=== PATIENT | male | born 1955 | race African-American/Black ===

== ENCOUNTER 2025-06-11 16:59 | Inpatient (IN) | payer OTHER ==
[~2025-06-11] VITALS: Ht 172.7 cm; Wt 73.5 kg
--- NOTE | 2025-06-11 17:19 | ED.PDOC ---
History of Present Illness HPI Comments This is a 60-year-old male who comes in with chief complaint of shortness a breath as well as chest pain. The patient was at home and according to the family, the patient has been complaining of shortness a breath and chest pain for the past 9 hours. At this time she states that the chest pain is an 8/10. The patient denies any history of this in the past. EN route the patient's Accu-Chek was 131. The patient is also having some diarrhea. The patient has had a stroke with left-sided weakness and does have some verbal issues. The patient also had a rhythm strip which showed PVC he has EN route. He is pointing to the left side of his chest and it does increase somewhat with palpat ion. Time Seen by MD: 17:06 Reviewed Notes: Nurses Notes, Director Of Parks And Recreation Notes, Medications, Allergies (No allergies to medications) Allergies: Coded Allergies: NO KNOWN ALLERGIES (Unverified , 06/11/25) Information Source: Patient, Emergency Med Personnel Mode of Arrival: EMS Severity: Moderate Timing: Hours Duration: Since onset Prehospital treatment: 12 Lead EKG, Accucheck (131 Accu-Chek), Bindery Leadperson, IVF Associated signs and symptoms The patient is complaining of shortness a breath with the chest pain as well as diarrhea Past Medical History PAST MEDICAL HISTORY: AFIB, CHF, CVA, HTN Surgical History: Denies all surgeries Family History Family History: No family hx of Cancer, No family hx of DM, No family hx of Heart brian, No family hx ofKidney brian Social History Smoker: Non-Smoker Alcohol: Denies ETOH Use Drugs: Denies Drug Use Lives In: Home Constitutional: denies: chills, diaphoresis, fatigue, fever, malaise, sweats, weakness, others EENTM: denies: blurred vision, double vision, ear bleeding, ear discharge, ear drainage, ear pain, ear ringing, eye pain, eye redness, hearing loss, mouth pain, mouth swelling, nasal discharge, nose bleeding, nose congestion, nose pain, photophobia, tearing, throat pain, throat swelling, voice changes, others Respiratory: reports: shortness of breath; denies: cough, hemoptysis, orthopnea, SOB at rest, SOB with excertion, stridor, wheezing, others Cardiovascular: reports: chest pain; denies: dizzy spells, diaphoresis, Dyspnea on exertion, edema, irregular heart beat, left arm pain, lightheadedness, palpitations, PND, syncope, others Gastrointestinal: reports: diarrhea; denies: abdomen distended, abdominal pain, blood streaked bowels, constipated, dysphagia, difficulty swallowing, hematemesis, melena, nausea, poor appetite, poor fluid intake, rectal bleeding, rectal pain, vomiting, others Genitourinary: denies: burning, dysuria, flank pain, frequency, hematuria, incontinence, penile discharge, penile sore, pain, testicle pain, testicle swelling, urgency, others Neurological: denies: dizziness, fainting, headache, left sided numbness, left sided weakness, numbness, paresthesia, pre-existing deficit, right sided n umbness, right sided weakness, seizure, speech problems, tingling, tremors, weakness, others Musculoskeletal: denies: back pain, gout, joint pain, joint swelling, muscle pain, muscle stiffness, neck pain, others Integumetry: denies: bruises, change in color, change in hair/nails, dryness, laceration, lesions, lumps, rash, wounds, others Allergic/Immunocompromised: denies: Difficulty Healing, Frequent Infections, Hives, Itching, others Hematologic/Lymphatic: denies: anemia, blood clots, easy bleeding, easy bruising, swollen glands, others Endocrine: denies: excessive hunger, excessive sweating, excessive thirst, excessive urination, flushing, intolerance to cold, intolerance to heat, unexplained weight gain, unexplained weight loss, others Psychiatric: denies: anxiety, bipolar disorder, depression, hopeless, panic disorder, schizophrenia, sleepless, suicidal, others Physical Exam General Appearance: Moderate Distress HEENT: Normal ENT Inspection, Pharynx Normal, TMs Normal Neck: Full Range of Motion, Non-Tender, Normal, Normal Inspection Respiratory: Chest Non-Tender, Lungs Clear, No Accessory Muscle Use, No Respiratory Distress, Normal Breath Sounds Cardiovascular: Bradycardia, No Edema, No JVD, No Murmur, No Gallop Breast Exam: Deferred Gastrointestinal: No Organomegaly, Non Tender, No Pulsatile Mass, Normal Bowel Sounds, Soft Genitalia: Deferred Pelvic: Deferred Rectal: Deferred Extremities: No calf tenderness, Normal capillary refill, No pedal edema Musculoskeletal : Apperance: Normal Neurologic: Alert, daily sales audit clerk II-XII nml as Tested, Motor Weakness (Left-sided weakness from a previous CVA), Normal Affect, Normal Mood, No Sensory Deficits Cerebellar Function: Normal Reflexes: Normal Skin: Dry, Normal Color, Warm Lymphatic: No Adenopathy Was a procedure done? Was a procedure done?: No EKG EKG : Pulse Rate (adult): 61 Cardiac Rhythm: Afib Hypertrophy: LVH ST: Nonsp Differential Dx Considerations may include: Generalized weakness, CVA, COPD, ACS, SD X-Ray, Labs, Meds, VS Vital Signs Date Time Temp Pulse Resp B/P (MAP) Pulse Ox O2 Delivery O2 Flow Rate FiO2 06/11/25 18:57 135/87 06/11/25 18:52 127/91 06/11/25 18:31 97 Nasal Cannula* 2 28 06/11/25 18:28 36 06/11/25 18:28 97.5 41 14 139/89 (106) 97 97.5 06/11/25 18:28 41 14 97 Nasal Cannula* 2 28 06/11/25 18:25 34 06/11/25 18:24 46 06/11/25 17:25 61 06/11/25 17:05 97.9 68 18 164/62 99 97.9 06/11/25 17:02 61 Lab Test 06/11/25 19:58 06/11/25 18:21 06/11/25 17:27 Range/Units Urine Color Light-yellow Yellow Urine Clarity Clear Clear Urine pH 5.5 5.0-9.0 Urine Specific [place] 1.009 1.001-1.035 Urine Protein Trace H Negative Urine Ketones Negative Negative Urine Blood Negative Negative /uL Urine Nitrite Negative Negative Urine Bilirubin Negative Negative Urine Urobilinogen Normal Negative mg/dL Urine Leukocyte Esterase Negative Negative /uL Urine RBC 1 0 - 3 /hpf Urine Microscopic WBC 1 0-3 /HPF Urine Squamous Epithelial Cells None seen <5 /hpf Urine Bacteria None seen None Seen /hpf Urine Sperm Present None Seen /hpf Urine Glucose Normal Normal mg/dL Troponin I High Sensitivity 41 42 </=54 ng/L White Blood Count 5.4 4.4-10.8 10^3/uL Red Blood Count 4.71 4.5-5.90 10^6/uL Hemoglobin 13.5 13.5-17.5 g/dL Hematocrit 40.1 L 41.0-53.0 % Mean Corpuscular Volume 85.0 80.0-100.0 fL Mean Corpuscular Hemoglobin 28.7 28.0-32.0 pg Mean Corpuscular Hemoglobin Concent 33.7 32.0-36.0 g/dL Red Cell Distribution Width 15.1 H 11.8-14.3 % Platelet Count 214 140-450 10^3/uL Mean Platelet Volume 9.1 6.9-10.8 fL Neutrophils (%) (Auto) 62.4 37.0-80.0 % Lymphocytes (%) (Auto) 29.7 10.0-50.0 % Monocytes (%) (Auto) 6.4 0.0-12.0 % Eosinophils (%) (Auto) 0.8 0.0-7.0 % Basophils (%) (Auto) 0.7 0.0-2.0 % Neutrophils # (Auto) 3.4 1.6-8.6 10 ^3/uL Lymphocytes # (Auto) 1.6 0.4-5.4 10 ^3/uL Monocytes # (Auto) 0.3 0-1.3 10 ^3/uL Eosinophils # (Auto) 0 0-0.8 10 ^3/uL Basophils # (Auto) 0 0-0.2 10 ^3/uL Nucleated Red Blood Cells 0.1 % Sodium Level 143 136-145 mmol/L Potassium Level 3.2 L 3.5-5.1 mmol/L Chloride Level 106 98-107 mmol/L Carbon Dioxide Level 25 20-31 mmol/L Anion Gap 12 5-15 Blood Urea Nitrogen 46 H 9-23 mg/dL Creatinine 4.23 H 0.700-1.30 mg/dL Glomerular Filtration Rate Calc 15 >90 mL/min BUN/Creatinine Ratio 10.9 10.0-20.0 Serum Glucose 104 74-106 mg/dL Calcium Level 9.4 8.7-10.4 mg/dL Current Medications Medications (Trade) Dose Ordered Sig/Phoebe Route Start Time Stop Time Status Last Admin Aspirin 162 mg ONCE ONCE PO 06/11/25 17:30 06/11/25 17:31 DC 06/11/25 18:25 Dopamine HCl/ Dextrose 250 ml @ 14.475 mls/ hr [id number] ONCE IV 06/11/25 18:45 8/27/25 12:01 06/11/25 18:52 The patient has been somewhat bradycardic and dipped down into the 30s at some point We did go ahead and get another EKG and at this time we are starting the patient on a dopamine drip. We contacted Dr. Martinez and the patient will be scheduled for pacemaker tomorrow. The patient will be placed NPO after midnight The patient did receive aspirin upon arrival secondary to the chest pain The patient's BUN is 46 and the creatinine is 4.23. The patient's potassium is decreased at 3.2 The patient is being given potassium as an IV dose. The patient is also being given 20 mEq of potassium p.o. The patient's CBC is within normal limits. The urine test is negative for any infection At this time, the patient is being admitted to the ICU We have discussed the findings with the patient Images Reviewed?: Images reviewed and evaluated by me Time of 1ST Reevaluation: 17:25 Reevaluation 1ST: Unchanged Patient Education/Counseling: Diagnosis, Treatment, Prognosis Family Education/Counseling: No Family Present SEPSIS Sepsis Screen Physician Orders Chest Portable (06/11/25 17:16) Heplock Iv (06/11/25 17:16) Bindery Leadperson (06/11/25 17:16) Blood Pressure (06/11/25 17:16) Pulse Oximetry (06/11/25 17:16) Electrocardigram (06/11/25 17:16) Troponin-I Hs (06/11/25 20:16) Electrocardigram (06/11/25 18:16) Electrocardigram (06/11/25 20:16) Head Without Contrast (06/11/25 18:18) Dopamine 1600mcg/Ml D5w (06/11/25 18:45) Communication Order (06/11/25 18:54) Admit (06/11/25 19:51) Nitroglycerin Sublingual (Ntrostat Subli (06/11/25 20:00) Morphine Sulfate Injection (06/11/25 20:00) Stat Ekg For Chest Pain (06/11/25 19:51) Notify Md Of Changes From Base (06/11/25 19:51) [employer] Ax Consultant For 24 Hours (06/11/25 19:51) Emergency Dysrhythmia Protocol (06/11/25 19:51) Rhythm Strips Once Every Shift (06/11/25 19:51) Oxygen By Nasal Cannula (06/11/25 19:51) Vital Signs Date Time Temp Pulse Resp B/P (MAP) Pulse Ox O2 Delivery O2 Flow Rate FiO2 06/11/25 18:57 135/87 06/11/25 18:52 127/91 06/11/25 18:31 97 Nasal Cannula* 2 28 06/11/25 18:28 36 06/11/25 18:28 97.5 41 14 139/89 (106) 97 97.5 06/11/25 18:28 41 14 97 Nasal Cannula* 2 28 06/11/25 18:25 34 06/11/25 18:24 46 06/11/25 17:25 61 06/11/25 17:05 97.9 68 18 164/62 99 97.9 06/11/25 17:02 61 Laboratory Tests Test 06/11/25 17:27 White Blood Count 5.4 10^3/uL (4.4-10.8) Medications Medications Dose Ordered Sig/Phoebe Route Start Time Stop Time Status Last Admin Dose Admin Aspirin 162 mg ONCE ONCE PO 06/11/25 17:30 06/11/25 17:31 DC 06/11/25 18:25 Dopamine HCl/ Dextrose 250 ml @ 14.475 mls/ hr [id number] ONCE IV 06/11/25 18:45 06/12/25 12:01 06/11/25 18:52 Departure 1 Departure Time of Disposition: 18:32 Impression: Primary Impression: Symptomatic bradycardia Additional Impressions: Acute chest pain Hypokalemia Disposition: ADMITTED INPATIENT Admit to: ICU Condition: Critical Critical Care Note Critical Care Time?: Yes Stability Stability form required: Yes Unstable for transfer: Telemetry monitoring (Telemetry monitoring required), ED Physician Assesment (Clinical assesment) Heart Score Heart Score: Heart Score Response (Comments) Value History Moderate Suspicious 1 EKG Repolarization Disturb 1 Age 45-64 1 Risk Factors >3 or Hx ASHD 2 Troponin Normal limit 0 Total 5 LUCIEN CHE MD Jun 11, 2025 17:19
[2025-06-11 17:52] LABS: Hematocrit 40.1 % (41.0-53.0); Hemoglobin 13.5 g/dL (13.5-17.5); Mean Corpuscular Hemoglobin 28.7 pg (28.0-32.0); Mean Corpuscular Volume 85.0 fL (80.0-100.0); Nucleated Red Blood Cells % 0.1 %
[2025-06-11 17:55] LABS: Chloride 106 mmol/L (98-107); Sodium 143 mmol/L (136-145)
[2025-06-11 17:56] LABS: Anion Gap 12 (5-15); Carbon Dioxide 25 mmol/L (20-31)
[2025-06-11 17:57] LABS: Calcium 9.4 mg/dL (8.7-10.4)
[2025-06-11 18:02] LABS: BUN/Creatinine Ratio 10.9 (10.0-20.0); Glucose 104 mg/dL (74-106)
[2025-06-11 18:14] LABS: Potassium 3.2 mmol/L (3.5-5.1)
[2025-06-11 18:15] LABS: Blood Urea Nitrogen 46 mg/dL (9-23)
--- NOTE | 2025-06-11 18:26 | DVH ---
EXAM: XY CHEST PORTABLE HISTORY: CP TECHNIQUE: 1 view of the chest COMPARISON: None FINDINGS/IMPRESSION: LUNGS: No pleural effusion, consolidation, or pneumothorax MEDIASTINUM: Unremarkable BONES: No acute osseous abnormality OTHER: None
[2025-06-11 18:28] VITALS: PULSE 41; RESP 14; O2SAT 97
[2025-06-11] MEDS: DOPamine 1600MCG/ML D5W 250 ML IV ONE ×2 (18:52)
--- NOTE | 2025-06-11 19:07 | DVH ---
EXAM: CT HEAD WITHOUT CONTRAST INDICATION: altered TECHNIQUE: CT images of the head were obtained without administration of IV contrast. CT scans at [facility] facility use dose modulation, iterative reconstruction, and/or weight based dosing when appropriate to reduce radiation dose to as low as reasonably achievable. COMPARISON: None available at the time of dictation. FINDINGS: PARENCHYMA: No acute hemorrhage. There is no mass effect, midline shift, or herniation. There is pres ervation of the [place] white differentiation. Mild scattered hypoattenuation along the periventricular, centrum semiovale, and deep white matter tracts, which are nonspecific however statistically most li miguel ángel represent chronic microvascular ischemic change. large presumed and subsequent ex vacuo dilatati on of the left occipital horn. Oval appearance of sequelae of infarct. Additional encephalomalacia o f the right anterior frontal lobe. Prior possible lacunar infarct in the left basal ganglia VENTRICLES: Dilated lateral ventricles. Left occipital horn ex vacuo dilation EXTRA-AXIAL SPACES: No extra-axial fluid collections. OTHER: The bony structures are intact. Visualized portions of the paranasal sinuses and mastoid air cells are clear. IMPRESSION: 1. No CT evidence of an acute intracranial hemorrhage.
[2025-06-11 19:31] VITALS: PULSE 49; RESP 15; O2SAT 100
[2025-06-11] MEDS ORDERED: NITROGLYCERIN 0.4 MG SL TAB SL PRN (20:00)
[2025-06-11] MEDS ORDERED: MORPHINE SULFATE INJ 2 MG/ml SYRG IV PRN (20:00)
[2025-06-11 20:05] LABS: Urine Protein, UAD TRACE (Negative)
[2025-06-11] MEDS ORDERED: ONDANSETRON HCL 4 MG/2 ML VIAL IV PRN (20:15)
--- NOTE | 2025-06-11 21:41 | DVHHP2 ---
History of Present Illness Reason for Visit: Chest pain History of Present Illness 70-year-old male presents for evaluation of chest pain. Patient is currently alert oriented x1. He does have episodes of confusion. I spoke with his daughter Maggy Teresa who stated they called EMS due to father pressing on his chest and complaining of chest pain. She also states father having a stroke two months ago and since then he has been having episodes of confusion. No other acute complaints reported. Past Medical History Hypertension, CVA, AFib Past Surgical History Unknown Family History Unknown Lives: with Family Review of Systems Review of Systems Review of systems are limited due to the patient's confusion. Allergies: Coded Allergies: NO KNOWN ALLERGIES (Unverified , 06/11/25) Medications Current Medications Medications Dose Ordered Sig/Phoebe Route Start Time Stop Time Status Last Admin Dose Admin Nitroglycerin 0.4 mg Q5MINP PRN SL 06/11/25 20:00 Morphine Sulfate 2 mg Q30M PRN IV 06/11/25 20:00 Aspirin 162 mg DAILY PO 06/12/25 10:00 Atorvastatin Calcium 10 mg HS PO 06/11/25 22:00 Ondansetron HCl 4 mg Q4HP PRN IV 06/11/25 20:15 Exam Vital Signs Vital Signs Date Time Temp Pulse Resp B/P (MAP) Pulse Ox O2 Delivery O2 Flow Rate FiO2 06/11/25 18:57 135/87 06/11/25 18:31 97 Nasal Cannula* 2 28 06/11/25 18:28 36 06/11/25 18:28 97.5 14 97.5 Exam Gen: 70-year-old male in mild distress Skin: Warm, dry, normal color and texture, no rash. HEENT: Normocephalic atraumatic, mucous membranes moist and pink. Neck: Cervical and supraclavicular nodes normal without enlargement, trachea is midline, thyroid gland is normal without masses. Pulmonary: Clear to auscultation and percussion bilaterally. Cardiac: Sinus bradycardia Abdomen: Soft, nontender, nondistended, bowel sounds present all 4 quadrants, no guarding, no rigidity, no organomegaly. Extremities: No cyanosis, clubbing, no edema Neuro: Alert oriented x1 with episodes of confusion Labs/Xrays ORDERING PHYSICIAN: LUCIEN CHE MD PROCEDURE(s): CXRP - CHEST PORTABLE REASON: CP ORDER NUMBER(s): [id number], ACCESSION NUMBER(s): [id number] EXAM: XY CHEST PORTABLE HISTORY: CP TECHNIQUE: 1 view of the chest COMPARISON: None FINDINGS/IMPRESSION: LUNGS: No pleural effusion, consolidation, or pneumothorax MEDIASTINUM: Unremarkable BONES: No acute osseous abnormality OTHER: None RING PHYSICIAN: LUCIEN CHE MD PROCEDURE(s): HWOCT - HEAD WITHOUT CONTRAST REASON: altered ORDER NUMBER(s): [id number], ACCESSION NUMBER(s): [id number] EXAM: CT HEAD WITHOUT CONTRAST INDICATION: altered TECHNIQUE: CT images of the head were obtained without administration of IV contrast. CT scans at this facility use dose modulation, iterative reconstruction, and/or weight based dosing when appropriate to reduce radiation dose to as low as reasonably achievable. COMPARISON: None available at the time of dictation. FINDINGS: PARENCHYMA: No acute hemorrhage. There is no mass effect, midline shift, or herniation. There is preservation of the [place] white differentiation. Mild scattered hypoattenuation along the periventricular, centrum semiovale, and deep white matter tracts, which are nonspecific however statistically most likely represent chronic microvascular ischemic change. large presumed and subsequent ex vacuo dilatation of the left occipital horn. Oval appearance of sequelae of infarct. Additional encephalomalacia of the right anterior frontal lobe. Prior possible lacunar infarct in the left basal ganglia VENTRICLES: Dilated lateral ventricles. Left occipital horn ex vacuo dilation EXTRA-AXIAL SPACES: No extra-axial fluid collections. OTHER: The bony structures are intact. Visualized portions of the paranasal sinuses and mastoid air cells are clear. IMPRESSION: 1. No CT evidence of an acute intracranial hemorrhage. Labs Test 06/11/25 19:58 06/11/25 18:21 06/11/25 17:27 Range/Units Urine Color Light-yellow Yellow Urine Clarity Clear Clear Urine pH 5.5 5.0-9.0 Urine Specific [place] 1.009 1.001-1.035 Urine Protein Trace H Negative Urine Ketones Negative Negative Urine Blood Negative Negative /uL Urine Nitrite Negative Negative Urine Bilirubin Negative Negative Urine Urobilinogen Normal Negative mg/dL Urine Leukocyte Esterase Negative Negative /uL Urine RBC 1 0 - 3 /hpf Urine Microscopic WBC 1 0-3 /HPF Urine Squamous Epithelial Cells None seen <5 /hpf Urine Bacteria None seen None Seen /hpf Urine Sperm Present None Seen /hpf Urine Glucose Normal Normal mg/dL Troponin I High Sensitivity 41 </=54 ng/L White Blood Count 5.4 4.4-10.8 10^3/uL Red Blood Count 4.71 4.5-5.90 10^6/uL Hemoglobin 13.5 13.5-17.5 g/dL Hematocrit 40.1 L 41.0-53.0 % Mean Corpuscular Volume 85.0 80.0-100.0 fL Mean Corpuscular Hemoglobin 28.7 28.0-32.0 pg Mean Corpuscular Hemoglobin Concent 33.7 32.0-36.0 g/dL Red Cell Distribution Width 15.1 H 11.8-14.3 % Platelet Count 214 140-450 10^3/uL Mean Platelet Volume 9.1 6.9-10.8 fL Neutrophils (%) (Auto) 62.4 37.0-80.0 % Lymphocytes (%) (Auto) 29.7 10.0-50.0 % Monocytes (%) (Auto) 6.4 0.0-12.0 % Eosinophils (%) (Auto) 0.8 0.0-7.0 % Basophils (%) (Auto) 0.7 0.0-2.0 % Neutrophils # (Auto) 3.4 1.6-8.6 10 ^3/uL Lymphocytes # (Auto) 1.6 0.4-5.4 10 ^3/uL Monocytes # (Auto) 0.3 0-1.3 10 ^3/uL Eosinophils # (Auto) 0 0-0.8 10 ^3/uL Basophils # (Auto) 0 0-0.2 10 ^3/uL Nucleated Red Blood Cells 0.1 % Sodium Level 143 136-145 mmol/L Potassium Level 3.2 L 3.5-5.1 mmol/L Chloride Level 106 98-107 mmol/L Carbon Dioxide Level 25 20-31 mmol/L Anion Gap 12 5-15 Blood Urea Nitrogen 46 H 9-23 mg/dL Creatinine 4.23 H 0.700-1.30 mg/dL Glomerular Filtration Rate Calc 15 >90 mL/min BUN/Creatinine Ratio 10.9 10.0-20.0 Serum Glucose 104 74-106 mg/dL Calcium Level 9.4 8.7-10.4 mg/dL SEPSIS Sepsis Screen Date sepsis recognized/suspect: Jun 11, 2025 Time Sepsis recognized/suspect: 1831 Recent Procedure: No On Antibiotic Therapy: No Respiratory Rate >20: No Heart Rate >90: No Temp<36 C (96.8 F) or >38.3 C: No SBP <90 or MAP <65 mmHG: No New Acute Mental Status Change: No Is the patient on CPAP, BIPAP,: No Physician Orders Chest Portable (06/11/25 17:16) Heplock Iv (06/11/25 17:16) Linseed Oil Refiner (06/11/25 17:16) Blood Pressure (06/11/25 17:16) Pulse Oximetry (06/11/25 17:16) Electrocardigram (06/11/25 17:16) Electrocardigram (06/11/25 18:16) Electrocardigram (06/11/25 20:16) Head Without Contrast (06/11/25 18:18) Dopamine 1600mcg/Ml D5w (06/11/25 18:45) Communication Order (06/11/25 18:54) Admit (06/11/25 19:51) Nitroglycerin Sublingual (Ntrostat Subli (06/11/25 20:00) Morphine Sulfate Injection (06/11/25 20:00) Stat Ekg For Chest Pain (06/11/25 19:51) Notify Md Of Changes From Base (06/11/25 19:51) Claims Attorney For 24 Hours (06/11/25 19:51) Emergency Dysrhythmia Protocol (06/11/25 19:51) Rhythm Strips Once Every Shift (06/11/25 19:51) Oxygen By Nasal Cannula (06/11/25 19:51) * Cardiology Consult (06/11/25 20:10) *[facility] (06/11/25 20:10) Basic Metabolic Panel (06/12/25 04:00) Aspirin Tablet (06/12/25 10:00) Atorvastatin (Lipitor) (06/11/25 22:00) Ondansetron Hcl (Zofran) (06/11/25 20:15) Cardiac Diet-2gna,Lofat,Lochol (06/12/25 Breakfast) Condition: Critical (06/11/25 20:11) Bedrest With Bathroom Privileg (06/11/25 20:11) Vital Signs Date Time Temp Pulse Resp B/P (MAP) Pulse Ox O2 Delivery O2 Flow Rate FiO2 06/11/25 18:57 135/87 06/11/25 18:52 127/91 06/11/25 18:31 97 Nasal Cannula* 2 28 06/11/25 18:28 36 06/11/25 18:28 97.5 41 14 139/89 (106) 97 97.5 06/11/25 18:28 41 14 97 Nasal Cannula* 2 28 06/11/25 18:25 34 06/11/25 18:24 46 06/11/25 17:25 61 06/11/25 17:05 97.9 68 18 164/62 99 97.9 06/11/25 17:02 61 Laboratory Tests Test 06/11/25 17:27 White Blood Count 5.4 10^3/uL (4.4-10.8) Medications Medications Dose Ordered Sig/Phoebe Route Start Time Stop Time Status Last Admin Dose Admin Aspirin 162 mg ONCE ONCE PO 06/11/25 17:30 06/11/25 17:31 DC 06/11/25 18:25 162 MG Dopamine HCl/ Dextrose 250 ml @ 14.475 mls/ hr [id number] ONCE IV 06/11/25 18:45 06/12/25 12:01 06/11/25 18:52 14.475 MLS/HR Assessment/Plan Assessment/Plan Assessment Symptomatic bradycardia Hypokalemia Hypotension Acute renal failure Plan Admit the patient to ICU to the hospitalist Continue dopamine drip Echocardiogram pending Cardiology consult Nephrology consult Family will call back with a list of patient's medications. Continue treatment per orders. Total critical care time excluding procedures performed this 55 minutes. Plan discussed with: Patient My Orders Orders - AMIE CRAIN Procedure Category Date Status Time Admit ADMIT 06/11/25 Transmitted 19:51 Nitroglycerin PHA 06/11/25 In Process Sublingual (Ntrostat 20:00 Morphine Sulfate PHA 06/11/25 In Process Injection 20:00 Stat Ekg For Chest PETER 06/11/25 In Process Pain 19:51 Notify Of Changes [facility] 06/11/25 In Process From Base 19:51 Claims Attorney For [facility] 06/11/25 In Process 24 Hours 19:51 Emergency Dysrhythmia [facility] 06/11/25 In Process Protocol 19:51 Rhythm Strips Once [facility] 06/11/25 In Process Every Shift 19:51 Oxygen By Nasal RT 06/11/25 Transmitted Cannula 19:51 * Cardiology Consult CONS 06/11/25 Transmitted 20:10 *[facility] CONS 06/11/25 Transmitted -[place] 20:10 Basic Metabolic Panel LAB 06/12/25 Verified 04:00 Aspirin Tablet PHA 06/12/25 In Process 10:00 Atorvastatin (Lipitor) PHA 06/11/25 In Process 22:00 Ondansetron Hcl PHA 06/11/25 In Process (Zofran) 20:15 Cardiac DIET 06/12/25 Transmitted Diet-2gna,Lofat,Lochol Breakfast Condition: Critical [facility] 06/11/25 In Process 20:11 Bedrest With Bathroom [facility] 06/11/25 In Process Privileg 20:11 Date of Service: Jun 11, 2025 Billing Provider: AMIE CRAIN Common Visit Codes: [id number] CARE 30-74 MIN AMIE CRAIN Jun 11, 2025 21:41
[2025-06-11] MEDS: hydrALAZINE HCL 20 MG/ML VL IV PRN (23:31)
[2025-06-11 23:45] VITALS: PULSE 43; RESP 15; O2SAT 100
[2025-06-11] MEDS: POTASSIUM CHL 20MEQ/100ML 100 ML IV ONE (23:49)
[2025-06-11] MEDS: ATORVASTATIN 20 MG TAB PO SCH (23:50)
[2025-06-12] VITALS (25 sets, daily range): BP systolic 132–183; BP diastolic 79–118; PULSE 36–113; RESP 14–24; TEMP 98.1–98.5; O2SAT 98–100
[2025-06-12] MEDS: hydrALAZINE HCL 20 MG/ML VL IV ONE (04:27)
[2025-06-12 05:01] LABS: Sodium 144 mmol/L (136-145)
[2025-06-12 05:02] LABS: Anion Gap 14 (5-15); Carbon Dioxide 22 mmol/L (20-31)
[2025-06-12 05:03] LABS: Calcium 9.8 mg/dL (8.7-10.4); Chloride 108 mmol/L (98-107); Potassium 2.7 mmol/L (3.5-5.1)
[2025-06-12 05:07] LABS: BUN/Creatinine Ratio 9.3 (10.0-20.0)
[2025-06-12 05:10] LABS: Blood Urea Nitrogen 31 mg/dL (9-23); Glucose 125 mg/dL (74-106)
[2025-06-12 09:31] LABS: Magnesium 1.7 mg/dL (1.6-2.6); Triglycerides 74.0 mg/dL (< 150)
[2025-06-12 09:33] LABS: Cholesterol 186.0 mg/dL (< 200); HDL Cholesterol 54.0 mg/dL (40-59)
--- NOTE | 2025-06-12 11:23 | DVHINCON2 ---
Date Seen: Jun 12, 2025 Referring Physician GILES Leon Reason for Consultation Bradycardia History of Present Illness This is a 70-year-old male patient who presents to emergency room with chief complaint of chest pain and shortness of breath per previous provider notes. At the time of assessment, the patient denies any cardiac symptoms. The patient denies any previous chest pain or shortness of breath. The patient does not remember coming to the emergency room. Per ER nurse notes, the patient was confused at time of ER arrival. At the time of assessment, the patient is now alert and oriented and able to answer all questions appropriately. Cardiology has been consulted at this time for bradycardia. Initial twelve lead electrocardiogram reveals atrial fibrillation with left ventricular hypertrophy and diffuse ST segment depression. After reviewing pvc monitor, the patient is noted to have atrial fibrillation with heart rate reaching as low as 34 beats per minute. At the time of assessment, the patient is in atrial fibrillation with heart rate sustaining in the 60s and off of dopamine drip. Initial troponin level of 42ng/L with flat trend thereafter. Significant past medical history includes atrial fibrillation (on metoprolol and Eliquis), congestive heart failure, hypertension, hyperlipidemia, CVA, and chronic kidney disease. The patient is a poor historian. The patient states he sees a commission associate in [facility]. Past Medical History Past medical history reviewed. No other significant than mentioned above. Past Surgical History Denies any previous surgeries Family History Family history reviewed. Social History Denies the use of tobacco, alcohol or illicit drugs. Allergies: Coded Allergies: NO KNOWN ALLERGIES (Unverified , 06/11/25) Home Meds Home medications reviewed. Current Medications Current Medications Medications (Trade) Dose Ordered Sig/Phoebe Route PRN Reason Start Time Stop Time Status Last Admin Nitroglycerin (Ntrostat Sublingual) 0.4 mg Q5MINP PRN SL FOR CHEST PAIN 06/11/25 20:00 Morphine Sulfate 2 mg Q30M PRN IV FOR CHEST PAIN 06/11/25 20:00 Aspirin 162 mg DAILY PO 06/12/25 10:00 Atorvastatin Calcium (Lipitor) 10 mg HS PO 06/11/25 22:00 06/11/25 23:50 Ondansetron HCl (Zofran) 4 mg Q4HP PRN IV NAUSEA / VOMITING 06/11/25 20:15 Hydralazine HCl (Apresoline Injection) 10 mg Q6HP PRN IV SBP>150 06/11/25 23:00 06/11/25 23:31 Review of Systems Constitutional: No symptom reported Ears, Nose, & Throat: No symptom reported Eyes: No symptom reported Neurological: No symptoms reported Pulmonary/Respiratory: Shortness of breath Cardiovascular: Chest pain Gastrointestinal: No symptom reported Genitourinary: No symptom reported Musculoskeletal: No symptom reported Skin: No symptom reported Psychiatric: No symptom reported Endocrine: No symptom reported Hematologic/Lymphatic: No symptom reported Vital Signs Vital Signs Date Time Temp Pulse Resp B/P (MAP) Pulse Ox O2 Delivery O2 Flow Rate FiO2 06/12/25 08:00 45 06/12/25 08:00 14 100 Nasal Cannula* 1 24 06/12/25 08:00 98.2 155/91 (112) 98.2 Physical Exam General Appearance: Cooperative. Well-developed. Well-nourished. No acute distress. Pulmonary/Respiratory: Clear, bilateral breaths sounds. Cardiovascular/Chest: Irregularly irregular rate and rhythm. Peripheral Pulses: 2+ Radial (R). 2+ Radial (L). 2+ Pedal (R). 2+ Pedal (L) Abdominal Exam: Normal bowel sounds. Ankle Exam: Negative ankle edema Lower extremities: Negative lower extremity edema Neuro/Mental Status: A/OX4, coherent. Thoughts/Psych: Normal thought pattern. Appropriate mood and affect. Good judgment and insight. Appearance: No acute distress. Skin Exam: Normal inspection. Normal color. Warm and dry. Labs/Diagnostic Data Labs Test 06/12/25 04:31 06/11/25 19:58 06/11/25 18:21 06/11/25 17:27 Range/Units Sodium Level 144 136-145 mmol/L Potassium Level 2.7 L 3.5-5.1 mmol/L Chloride Level 108 H 98-107 mmol/L Carbon Dioxide Level 22 20-31 mmol/L Anion Gap 14 5-15 Blood Urea Nitrogen 31 #H 9-23 mg/dL Creatinine 3.35 H 0.700-1.30 mg/dL Glomerular Filtration Rate Calc 19 >90 mL/min BUN/Creatinine Ratio 9.3 L 10.0-20.0 Serum Glucose 125 H 74-106 mg/dL Hemoglobin A1c 5.0 <5.7 % A1C Calcium Level 9.8 8.7-10.4 mg/dL Magnesium Level 1.7 1.6-2.6 mg/dL Triglycerides Level 74 < 150 mg/dL Cholesterol Level 186 < 200 mg/dL LDL Cholesterol 119 H < 100 mg/dL HDL Cholesterol 54 40-59 mg/dL Thyroid Stimulating Hormone (TSH) 0.34 L 0.55-4.78 uIU/mL Urine Color Light-yellow Yellow Urine Clarity Clear Clear Urine pH 5.5 5.0-9.0 Urine Specific [place] 1.009 1.001-1.035 Urine Protein Trace H Negative Urine Ketones Negative Negative Urine Blood Negative Negative /uL Urine Nitrite Negative Negative Urine Bilirubin Negative Negative Urine Urobilinogen Normal Negative mg/dL Urine Leukocyte Esterase Negative Negative /uL Urine RBC 1 0 - 3 /hpf Urine Microscopic WBC 1 0-3 /HPF Urine Squamous Epithelial Cells None seen <5 /hpf Urine Bacteria None seen None Seen /hpf Urine Sperm Present None Seen /hpf Urine Glucose Normal Normal mg/dL Troponin I High Sensitivity 41 </=54 ng/L White Blood Count 5.4 4.4-10.8 10^3/uL Red Blood Count 4.71 4.5-5.90 10^6/uL Hemoglobin 13.5 13.5-17.5 g/dL Hematocrit 40.1 L 41.0-53.0 % Mean Corpuscular Volume 85.0 80.0-100.0 fL Mean Corpuscular Hemoglobin 28.7 28.0-32.0 pg Mean Corpuscular Hemoglobin Concent 33.7 32.0-36.0 g/dL Red Cell Distribution Width 15.1 H 11.8-14.3 % Platelet Count 214 140-450 10^3/uL Mean Platelet Volume 9.1 6.9-10.8 fL Neutrophils (%) (Auto) 62.4 37.0-80.0 % Lymphocytes (%) (Auto) 29.7 10.0-50.0 % Monocytes (%) (Auto) 6.4 0.0-12.0 % Eosinophils (%) (Auto) 0.8 0.0-7.0 % Basophils (%) (Auto) 0.7 0.0-2.0 % Neutrophils # (Auto) 3.4 1.6-8.6 10 ^3/uL Lymphocytes # (Auto) 1.6 0.4-5.4 10 ^3/uL Monocytes # (Auto) 0.3 0-1.3 10 ^3/uL Eosinophils # (Auto) 0 0-0.8 10 ^3/uL Basophils # (Auto) 0 0-0.2 10 ^3/uL Nucleated Red Blood Cells 0.1 % Assessment Atrial fibrillation with slow ventricular rate (on metoprolol and Eliquis) Rule out structural heart disease Hypertensive urgency Hyperlipidemia Chronic kidney disease Hypokalemia Hx of CVA Plan/Recommendation We will continue with the following plan/recommendations (Dr. Manriquez): * Transthoracic echocardiogram to evaluate cardiac function * Avoid AV serenity blocking agents * Discontinue dopamine drip. * Consider transcutaneous pacing versus isoproterenol if heart rate less than 35bpm and sustaining * Blood pressure control * [id number] VASc score: 5 points, HAS-BLED score: 3 points * Stop metoprolol * Therapeutic Lovenox (renal dose) * Hold antiarrhythmic agents given unknown duration of AFib * Close Cardiac surveillance; notify Cardiology immediately for any ECG changes, pauses or heart blocks. * Nuclear scan Case discussed with . We will recommend to stop all AV serenity blocking agents at this time. Given diffuse ST segment changes on patient's twelve lead electrocardiogram, we will proceed with a nuclear stress test. Elevated creatinine level noted. Thank you for allowing us to care for this patient. Please call with any questions or concerns. Critical care time spent: 44 minutes This medical document was created using an electronic medical record system with voice recognition software and computerized dictation system. Although this document has been carefully reviewed, there might still be some phonetic and typographical errors. Occasional wrong-word or ``sound-alike substitutions may have occurred due to the inherent limitations of voice recognition software. These areas are purely typographical due to imperfections of the software programs and do not reflect any compromise in the patient's medical care. Please read the chart carefully and recognize, using context, where these substitutions have occurred. Plan discussed with: Patient NYHA Physical activity limitations: NA Date of Service: Jun 12, 2025 Billing Provider: MALORIE BROWNE Cardiology Common Codes: [id number] INP/OBS CARE (High) Cardiology Consultation Codes: [id number] CONSULT <45MIN MALORIE BROWNE Jun 12, 2025 11:23
[2025-06-12] MEDS: POTASSIUM EFFERVESENT TAB 25 MEQ PO ONE ×2 (12:20→19:53)
[2025-06-12] MEDS: ENOXAPARIN SOD 80 MG/0.8ML SYRINGE SC SCH (14:42)
--- NOTE | 2025-06-12 16:25 | DVHINCON2 ---
Date of service: Jun 12, 2025 Reason for Consultation MARK History of Present Illness 70 years old male with past medical history of hypertension, CVA, AFib, Chronic kidney disease, presented with chief complaints of chest pain and worsening confusion patient found to be bradycardic, also found to be in urinary retent ion, daley catheter has been placed,2700 cc uop after that overnight Past Medical History Per HPI Allergies: Coded Allergies: NO KNOWN ALLERGIES (Unverified , 06/11/25) Current Medications Current Medications Medications (Trade) Dose Ordered Sig/Phoebe Route PRN Reason Start Time Stop Time Status Last Admin Nitroglycerin (Ntrostat Sublingual) 0.4 mg Q5MINP PRN SL FOR CHEST PAIN 06/11/25 20:00 Morphine Sulfate 2 mg Q30M PRN IV FOR CHEST PAIN 06/11/25 20:00 Aspirin 162 mg DAILY PO 06/12/25 10:00 06/12/25 12:19 Atorvastatin Calcium (Lipitor) 10 mg HS PO 06/11/25 22:00 06/11/25 23:50 Ondansetron HCl (Zofran) 4 mg Q4HP PRN IV NAUSEA / VOMITING 06/11/25 20:15 Hydralazine HCl (Apresoline Injection) 10 mg Q6HP PRN IV SBP>150 06/11/25 23:00 06/11/25 23:31 Enoxaparin Sodium (Lovenox) 80 mg DAILY SC 06/12/25 12:34 06/12/25 14:42 Atropine Sulfate (Atropine Sulfate) 1 mg PRN PRN IV Code Medication 06/12/25 14:00 Sodium Chloride 1,000 ml @ 60 mls/hr [id number] IV 06/12/25 16:15 UNV Review of Systems Poor historian H&P Exam Vital Signs/I&O Vital Sign Date Time Temp Pulse Resp B/P (MAP) Pulse Ox O2 Delivery O2 Flow Rate FiO2 06/12/25 15:30 38 18 137/95 (109) 100 06/12/25 08:00 Nasal Cannula* 1 24 06/12/25 08:00 98.2 98.2 Intake and Output 06/11/25 06/12/25 19:00 07:00 Intake Total 100 ml Balance 100 ml Intake IV Total 100 ml Physical Exam General-not in any distress HEENT-normocephalic, no icterus, no pallor, neck supple Respiratory-fair air entry bilateral, no rhonchi, no wheeze [id number] heard, bradycardic Abdominal-soft, nontender, nondistended Musculoskeletal-no pedal edema, no calf tenderness Genitourinary-deferred Neuro-awake alert oriented x1, Psychiatric-not agitated, cooperative, Labs/Diagnostic Data Labs/Diagnostic Data Laboratory Tests Test 06/12/25 04:31 06/11/25 19:58 06/11/25 18:21 06/11/25 17:27 Range/Units Sodium Level 144 143 136-145 mmol/L Potassium Level 2.7 L 3.2 L 3.5-5.1 mmol/L Chloride Level 108 H 106 98-107 mmol/L Carbon Dioxide Level 22 25 20-31 mmol/L Anion Gap 14 12 5-15 Blood Urea Nitrogen 31 #H 46 H 9-23 mg/dL Creatinine 3.35 H 4.23 H 0.700-1.30 mg/dL Glomerular Filtration Rate Calc 19 15 >90 mL/min BUN/Creatinine Ratio 9.3 L 10.9 10.0-20.0 Serum Glucose 125 H 104 74-106 mg/dL Hemoglobin A1c 5.0 <5.7 % A1C Calcium Level 9.8 9.4 8.7-10.4 mg/dL Magnesium Level 1.7 1.6-2.6 mg/dL Triglycerides Level 74 < 150 mg/dL Cholesterol Level 186 < 200 mg/dL LDL Cholesterol 119 H < 100 mg/dL HDL Cholesterol 54 40-59 mg/dL Thyroid Stimulating Hormone (TSH) 0.34 L 0.55-4.78 uIU/mL Urine Color Light-yellow Yellow Urine Clarity Clear Clear Urine pH 5.5 5.0-9.0 Urine Specific [place] 1.009 1.001-1.035 Urine Protein Trace H Negative Urine Ketones Negative Negative Urine Blood Negative Negative /uL Urine Nitrite Negative Negative Urine Bilirubin Negative Negative Urine Urobilinogen Normal Negative mg/dL Urine Leukocyte Esterase Negative Negative /uL Urine RBC 1 0 - 3 /hpf Urine Microscopic WBC 1 0-3 /HPF Urine Squamous Epithelial Cells None seen <5 /hpf Urine Bacteria None seen None Seen /hpf Urine Sperm Present None Seen /hpf Urine Glucose Normal Normal mg/dL Troponin I High Sensitivity 41 42 </=54 ng/L White Blood Count 5.4 4.4-10.8 10^3/uL Red Blood Count 4.71 4.5-5.90 10^6/uL Hemoglobin 13.5 13.5-17.5 g/dL Hematocrit 40.1 L 41.0-53.0 % Mean Corpuscular Volume 85.0 80.0-100.0 fL Mean Corpuscular Hemoglobin 28.7 28.0-32.0 pg Mean Corpuscular Hemoglobin Concent 33.7 32.0-36.0 g/dL Red Cell Distribution Width 15.1 H 11.8-14.3 % Platelet Count 214 140-450 10^3/uL Mean Platelet Volume 9.1 6.9-10.8 fL Neutrophils (%) (Auto) 62.4 37.0-80.0 % Lymphocytes (%) (Auto) 29.7 10.0-50.0 % Monocytes (%) (Auto) 6.4 0.0-12.0 % Eosinophils (%) (Auto) 0.8 0.0-7.0 % Basophils (%) (Auto) 0.7 0.0-2.0 % Neutrophils # (Auto) 3.4 1.6-8.6 10 ^3/uL Lymphocytes # (Auto) 1.6 0.4-5.4 10 ^3/uL Monocytes # (Auto) 0.3 0-1.3 10 ^3/uL Eosinophils # (Auto) 0 0-0.8 10 ^3/uL Basophils # (Auto) 0 0-0.2 10 ^3/uL Nucleated Red Blood Cells 0.1 % Assessment Acute kidney injury possible obstructive etiology status post Daley Bradycardia Hypokalemia Hypertension Recommendations Continue Daley catheter Kidney ultrasound NS IV as ordered K replace Reviewed vital signs, lab work, imaging studies, medications, microbiology, other physician recommendations Total time spent 80 minutes More than 50% of the time spent providing direct [id number] care . Thank you for allowing me to participate in the care of your patient. Plan discussed with: Patient CARLOTTA DOSHI MD Jun 12, 2025 16:25
[2025-06-12] MEDS: SODIUM CHLORIDE 0.9% 1,000 ML IV SCH (16:43)
[2025-06-12] MEDS: GLUCAGON EMERG KIT 1mg/1ml IV ONE (16:45)
--- NOTE | 2025-06-12 16:45 | DVHPN2 ---
Subjective Patient's currently remains altered we will be upgraded to D OU because of bradycardia Reviewed: Care Plan Changes from previous H/P or p: No Changes Objective Vitals Vital Signs Date Time Temp Pulse Resp B/P (MAP) Pulse Ox O2 Delivery O2 Flow Rate FiO2 06/12/25 16:00 44 06/12/25 15:30 18 137/95 (109) 100 06/12/25 08:00 Nasal Cannula* 1 24 06/12/25 08:00 98.2 98.2 Intake/Output Intake and Output 06/12/25 07:00 Intake Total 100 ml Balance 100 ml Intake IV Total 100 ml Exam HEENT pupils are reactive Neck is supple CV is S1-S2 AFib with a bradycardia into 34-36 Respiratory bilateral clear GI positive bowel sound 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 Medications Current Medications Medications Dose Ordered Sig/Phoebe Route Start Time Stop Time Status Last Admin Dose Admin Nitroglycerin 0.4 mg Q5MINP PRN SL 06/11/25 20:00 Morphine Sulfate 2 mg Q30M PRN IV 06/11/25 20:00 Aspirin 162 mg DAILY PO 06/12/25 10:00 06/12/25 12:19 162 MG Atorvastatin Calcium 10 mg HS PO 06/11/25 22:00 06/11/25 23:50 10 MG Ondansetron HCl 4 mg Q4HP PRN IV 06/11/25 20:15 Hydralazine HCl 10 mg Q6HP PRN IV 06/11/25 23:00 06/11/25 23:31 10 MG Enoxaparin Sodium 80 mg DAILY SC 06/12/25 12:34 06/12/25 14:42 80 MG Atropine Sulfate 1 mg PRN PRN IV 06/12/25 14:00 Sodium Chloride 1,000 ml @ 60 mls/hr [id number] IV 06/12/25 16:15 Isoproterenol HCl 1 mg/Dextrose 255 ml @ 30.6 mls/hr Q8H20M IV 06/12/25 16:30 Laboratory Results Laboratory Tests 06/11/25 17:27 06/12/25 04:31 Chemistry Test 06/11/25 17:27 06/12/25 04:31 Calcium Level 9.4 mg/dL (8.7-10.4) 9.8 mg/dL (8.7-10.4) Magnesium Level 1.7 mg/dL (1.6-2.6) Lipid panel Test 06/12/25 04:31 Cholesterol Level 186 mg/dL (< 200) HDL Cholesterol 54 mg/dL (40-59) Triglycerides Level 74 mg/dL (< 150) HgA1c, TSH Test 06/12/25 04:31 Hemoglobin A1c 5.0 % A1C (<5.7) Thyroid Stimulating Hormone (TSH) 0.34 uIU/mL (0.55-4.78) L Urinalysis Test 06/11/25 19:58 Urine Color Light-yellow (Yellow) Urine Clarity Clear (Clear) Urine pH 5.5 (5.0-9.0) Urine Specific [place] 1.009 (1.001-1.035) Urine Protein Trace (Negative) H Urine Ketones Negative (Negative) Urine Blood Negative /uL (Negative) Urine Nitrite Negative (Negative) Urine Bilirubin Negative (Negative) Urine Urobilinogen Normal mg/dL (Negative) Urine Leukocyte Esterase Negative /uL (Negative) Urine RBC 1 /hpf (0 - 3) Urine Microscopic WBC 1 /HPF (0-3) Urine Squamous Epithelial Cells None seen /hpf (<5) Urine Bacteria None seen /hpf (None Seen) Urine Sperm Present /hpf (None Seen) Urine Glucose Normal mg/dL (Normal) Assessment/Plan Assessment/Plan 70-year-old male with a known history of hypertension, dyslipidemia, CKD, history of CVA presented to the hospital with the increasing shortness a breath or chest pain found to have 1. AFib with slow ventricular response was on Eliquis and metoprolol which will be on hold 2. Hypertensive urgency 3. Acute metabolic encephalopathy 4. CKD 4. Hypokalemia 6. History of CVA -hold dopamine hold beta mary, continue isoproterenol drip cardiology consultation, upgraded the patient to D OU. Plan discussed with: Patient My Orders Orders - MOR MARADIAGA MD Procedure Category Date Status Time Basic Metabolic Panel LAB 06/12/25 Logged 16:40 Magnesium LAB 06/12/25 Logged 16:40 Date of Service: Jun 12, 2025 Billing Provider: MOR MARAIDAGA MD Common Visit Codes: [id number] INP/OBS CARE(HIGH) MOR MARADIAGA MD Jun 12, 2025 16:45
[2025-06-12 17:01] LABS: Sodium 145 mmol/L (136-145)
[2025-06-12 17:02] LABS: Anion Gap 11 (5-15); Calcium 9.6 mg/dL (8.7-10.4); Carbon Dioxide 27 mmol/L (20-31)
[2025-06-12 17:07] LABS: BUN/Creatinine Ratio 11.4 (10.0-20.0); Glucose 98 mg/dL (74-106)
[2025-06-12 17:08] LABS: Magnesium 1.8 mg/dL (1.6-2.6)
[2025-06-12 17:12] LABS: Blood Urea Nitrogen 39 mg/dL (9-23); Chloride 107 mmol/L (98-107); Potassium 3.4 mmol/L (3.5-5.1)
--- NOTE | 2025-06-12 17:22 | DVH ---
EXAM: US KIDNEY INDICATION: veronica TECHNIQUE: Multiple real-time sonographic images of the kidneys and bladder were obtained. COMPARISON: None Findings: Right kidney measures 9.7 x 7.2 x 6.5 cm with normal contours, increased echotexture, and decreased c ortical thickness. 7.2 x 6.5 x 6.6 cm anechoic lesion. No evidence of hydronephrosis, calculi, or so lid lesions. Left kidney measures 8.6 x 2.7 x 2.9 cm with normal contours, increased echotexture, and decreased co rtical thickness. Multiple anechoic lesions measuring up to 2.7 x 2.9 x 3.4 cm. Echogenic focus near the left renal pelvis. No evidence of hydronephrosis or solid lesions. Urinary bladder is decompressed via Ahumada catheter. Impression: 1. Increased echogenicity and decreased cortical thickness of bilateral kidneys. Correlate for medic al renal disease. 2. Bilateral renal cysts. 3. Left arcuate calcification versus nephrolithiasis. 4. Urinary bladder is decompressed via Ahumada catheter.
--- NOTE | 2025-06-12 17:51 | DVHSR ---
APPROVED REPORT EXAM: Two-dimensional and M-mode echocardiogram with Doppler and color Doppler. Blood Pressure: 155/91 mmHg INDICATION Evaluate cardiac function RISK FACTORS Height: 5'8", Weight: 170 DIMENSIONS LVDd5.1 (3.8-5.7cm)LA (2D)4.2 (1.9-4.0cm)Aortic Root3.8 (2.0-3.7cm) LVDs3.8 (2.5-4.0cm)LA (MM) (1.9-4.0cm)Aortic Cusp Exc1.8 (1.5-2.0cm) EF (%) 60.0 (55-70%)Rt. Atrium4.7 (1.9-4.0cm)Asc. Aorta cm IVSd1.2 (0.7-1.1cm)RV (D)4.0 (1.8-2.4cm) PWd1.3 (0.7-1.1cm) Mitral Valve MitralMitral Stenosis E wave0.70m/sMV Mean GR.mmHg A wave0.22m/sMV Peak GR.mmHg E/A ratio3.22D MVAcm2 DECEL [id number] 1/2 Timems Aortic Valve Aortic ValveAortic Stenosis V10.79m/Jeff Mean GR.3mmHg V21.38m/Jeff Peak GR.8mmHg LVOT Diameter2.4 (1.8-2.4cm)Doppler AVA2.59cm2 Pulmonic Valve V21.03m/s Tricuspid Valve TR Velocity2.58m/s [id number] Other Information Quality : Rhythm : Bradycardia Conclusion Undetermined rhythm. Bradycardia. Concentric LVH with biatrial enlargement. Aortic root enlargement. Valves appear to be structurally normal. Left ventricular function is preserved at 60% with normal RV function. Dopplers unremarkable. No pericardial effusion masses or vegetations.
[2025-06-12] MEDS: ISOPROTERENOL HCL INJECTION 1 MG in D5W 5% 250 ML IV SCH (18:50)
[2025-06-13] VITALS (89 sets, daily range): BP systolic 108–172; BP diastolic 65–114; PULSE 33–98; RESP 11–25; TEMP 97.9–98.8; O2SAT 95–100
[2025-06-13 03:52] LABS: Anion Gap 13 (5-15); Carbon Dioxide 24 mmol/L (20-31); Chloride 106 mmol/L (98-107); Sodium 143 mmol/L (136-145)
[2025-06-13 03:54] LABS: Calcium 9.6 mg/dL (8.7-10.4)
[2025-06-13 03:56] LABS: Potassium 2.8 mmol/L (3.5-5.1)
[2025-06-13 03:58] LABS: BUN/Creatinine Ratio 8.6 (10.0-20.0); Glucose 99 mg/dL (74-106); Hematocrit 43.2 % (41.0-53.0); Hemoglobin 14.8 g/dL (13.5-17.5); Mean Corpuscular Hemoglobin 29.0 pg (28.0-32.0); Mean Corpuscular Volume 84.6 fL (80.0-100.0); Nucleated Red Blood Cells % 0.3 %
[2025-06-13 04:15] LABS: Blood Urea Nitrogen 30 mg/dL (9-23)
[2025-06-13] MEDS: POTASSIUM CHL 20MEQ/100ML 100 ML IV SCH (06:09)
--- NOTE | 2025-06-13 09:25 | DVHPN2 ---
Consult Progress Note Subjective Other Systems: Patient remains in the intensive care unit. Patient currently in atrial fibrillation with a slow ventricular rate on cardiac tech. Objective vital signs Vital Sign Date Time Temp Pulse Resp B/P (MAP) Pulse Ox O2 Delivery O2 Flow Rate FiO2 06/13/25 09:20 172/102 06/13/25 07:00 69 17 100 06/13/25 06:00 Nasal Cannula* 3 32 06/13/25 04:00 98.6 98.6 Total Intake and Output 06/12/25 06/12/25 06/13/25 15:00 23:00 07:00 Intake Total 451.8 ml 902.4 ml Output Total 2700 ml 350 ml Balance -2700 ml 451.8 ml 552.4 ml medications Current Medications Medications Dose Ordered Sig/Phoebe Route Start Time Stop Time Status Last Admin Dose Admin Nitroglycerin 0.4 mg Q5MINP PRN SL 06/11/25 20:00 Morphine Sulfate 2 mg Q30M PRN IV 06/11/25 20:00 Aspirin 162 mg DAILY PO 06/12/25 10:00 06/12/25 12:19 162 MG Atorvastatin Calcium 10 mg HS PO 06/11/25 22:00 06/12/25 21:32 10 MG Ondansetron HCl 4 mg Q4HP PRN IV 06/11/25 20:15 Hydralazine HCl 10 mg Q6HP PRN IV 06/11/25 23:00 06/13/25 09:20 10 MG Atropine Sulfate 1 mg PRN PRN IV 06/12/25 14:00 Sodium Chloride 1,000 ml @ 60 mls/hr [id number] IV 06/12/25 16:15 06/13/25 07:50 60 MLS/HR Isoproterenol HCl 1 mg/Dextrose 255 ml @ 30.6 mls/hr Q8H20M IV 06/12/25 16:30 06/12/25 18:50 30.6 MLS/HR Potassium Chloride 100 ml @ 50 mls/hr Q2H IV 06/13/25 06:00 06/13/25 09:59 06/13/25 07:49 50 MLS/HR Examination: GENERAL:Abnormal (Generalized weakness), LUNGS:Normal, CVS:Abnormal (Atrial fibrillation with slow ventricular rate), NEURO:Normal laboratory and microbiology Laboratory Tests 06/13/25 03:12 Test 06/13/25 03:12 Range/Units Serum Glucose 99 74-106 mg/dL Problem List/Assessment/Plan Problem List/Assessment/Plan Atrial fibrillation with slow ventricular rate (on metoprolol and Eliquis) Hypertensive urgency Hyperlipidemia Chronic kidney disease Hypokalemia Hx of CVA Plan/Recommendations (Dr. Manriquez): * Transthoracic echocardiogram reveals EF 60% * Avoid AV serenity blocking agents * Consider transcutaneous pacing versus isoproterenol if heart rate less than 35bpm and sustaining * Blood pressure control * [id number] VASc score: 5 points, HAS-BLED score: 3 points * Hold metoprolol given bradycardia * Hold anticoagulation for pending permanent pacemaker implantation. Consider NOAC therapy prior to discharge * Hold antiarrhythmic agents given unknown duration of AFib * Close Cardiac surveillance; notify Cardiology immediately for any ECG changes, pauses or heart blocks. Case discussed with . vehicle monitor technician reviewed overnight. The patient was on isoproterenol drip overnight. Drip stopped at time of assessment to assess chronotropic response. Patient still in atrial fibrillation with slow ventricular response sustaining. The patient may benefit from permanent pacemaker implantation. Plan discussed with the patient and his daughter via telephone. Both the patient and his daughter are agreeable for the patient to undergo the procedure. We will schedule the patient at soonest availability on 06/14/2025. Initially, a nuclear stress test was also ordered given diffuse ST segment changes on initial 12 lead electrocardiogram. The patient denies any cardiac symptoms such as chest pain or shortness of breath. Given poor renal function, the patient may not be an ideal candidate for coronary angiogram with left heart catheterization. Explained situation to daughter via telephone. Daughter is in agreement and states that she would only like for the patient to undergo a pacemaker at this time and no other cardiac procedures. Thank you for allowing us to care for this patient. Please call with any questions or concerns. Critical care time spent: 39 minutes.This medical document was created using an electronic medical record system with voice recognition software and computerized dictation system. Although this document has been carefully reviewed, there might still be some phonetic and typographical errors. Occasional wrong-word or ``sound-alike substitutions may have occurred due to the inherent limitations of voice recognition software. These areas are purely typographical due to imperfections of the software programs and do not reflect any compromise in the patient's medical care. Please read the chart carefully and recognize, using context, where these substitutions have occurred. Plan discussed with: Patient, Daughter, Other (Bedside RN) Date of Service: Jun 13, 2025 Billing Provider: MALORIE BROWNE Common Visit Codes: [id number] CARE 30-74 MIN MALORIE BROWNE Jun 13, 2025 09:25
[2025-06-13 10:29] LABS: Triglycerides 74 mg/dL (< 150)
[2025-06-13 10:31] LABS: Cholesterol 168 mg/dL (< 200); HDL Cholesterol 50 mg/dL (40-59)
[2025-06-13] MEDS: POTASSIUM CHL 20 Meq TABLET PO ONE (10:45)
--- NOTE | 2025-06-13 11:48 | DVHPN2 ---
Progress Note Date Seen: Jun 13, 2025 Resident Creating Document: BELA CASTILLO RESIDENT Medical Necessity Reason Pt with a Central, PICC or Fol: Yes The following are medically ne: Daley Catheter Subjective Review of Systems 70 years old male with past medical history of hypertension, CVA, AFib, ?Chronic kidney disease, presented with chief complaints of chest pain and worsening confusion. patient found to be bradycardic, and was started on isoproterenol by the Cardiology team and transferred to ICU Patient was also found to be in urinary retention, as when daley catheter was placed, patient had 2700 cc uop after that overnight. 06/13/2025 Patient is currently seen in ICU Patient is mildly confused and is a poor historian Mentioned no active complaints Isoproterenol was discontinued by the capacity manager Input output 1.2 L/3 L with a net of -1.8 L in last 24 hours Had 350 mL urine output last night and 100 mL in the morning Labs 06/13/2025 Serum creatinine 3.47, previous creatinine 3.41 from 06/12/2025 Potassium 2.8 and magnesium 1.7 Objective vital signs Vital Sign Date Time Temp Pulse Resp B/P (MAP) Pulse Ox O2 Delivery O2 Flow Rate FiO2 06/13/25 09:20 172/102 06/13/25 08:00 58 06/13/25 07:00 17 100 06/13/25 06:00 Nasal Cannula* 3 32 06/13/25 04:00 98.6 98.6 Total Intake and Output 06/12/25 06/12/25 06/13/25 15:00 23:00 07:00 Intake Total 451.8 ml 902.4 ml Output Total 2700 ml 350 ml Balance -2700 ml 451.8 ml 552.4 ml medications Current Medications Medications Dose Ordered Sig/Phoebe Route Start Time Stop Time Status Last Admin Dose Admin Nitroglycerin 0.4 mg Q5MINP PRN SL 06/11/25 20:00 Morphine Sulfate 2 mg Q30M PRN IV 06/11/25 20:00 Atorvastatin Calcium 10 mg HS PO 06/11/25 22:00 06/12/25 21:32 10 MG Ondansetron HCl 4 mg Q4HP PRN IV 06/11/25 20:15 Hydralazine HCl 10 mg Q6HP PRN IV 06/11/25 23:00 06/13/25 09:20 10 MG Atropine Sulfate 1 mg PRN PRN IV 06/12/25 14:00 Sodium Chloride 1,000 ml @ 60 mls/hr [id number] IV 06/12/25 16:15 06/13/25 07:50 60 MLS/HR Isoproterenol HCl 1 mg/Dextrose 255 ml @ 30.6 mls/hr Q8H20M IV 06/12/25 16:30 06/12/25 18:50 30.6 MLS/HR Examination Examination General Appearance: Mildly confused HEENT: EOMI Respiratory: Clear to auscultation, Normal air movement Cardiovascular: Regular rate, Normal S1, Normal S2 Abdominal: Normal bowel sounds Extremities: No cyanosis, No edema, Normal pulses, No tenderness/swelling Skin: No rashes, No breakdown Neuro: Confused laboratory and microbiology Laboratory Tests 06/13/25 03:12 Test 06/13/25 03:12 Range/Units Serum Glucose 99 74-106 mg/dL Labs and/or images reviewed: Labs reviewed by me, Image(s) reviewed by me Problem List/Assessment/Plan Problem List/Assessment/Plan Assessment/plan #Acute kidney injury possible obstructive etiology status post Daley over ? CKD -unknown baseline kidney function as of now Input output 1.2 L/3 L with a net of -1.8 L in last 24 hours Had 350 mL urine output last night and 100 mL in the morning Labs 06/13/2025 Serum creatinine 3.47, previous creatinine 3.41 from 06/12/2025 Potassium 2.8 and magnesium 1.7 #hypokalemia # hypomagnesemia Labs 06/13/2025 Potassium 2.8 and magnesium 1.7 # bradycardia # Hypertension # history of stroke # history of atrial fibrillation Plan Strict input and output Monitor kidney function and electrolytes including magnesium Continue with Daley catheter Continue with IV fluids at 60 cc per Patient is a poor historian, unknown baseline kidney function Potassium replaced with 60 mEq of oral potassium Magnesium replaced by the capacity manager, continue to monitor Case discussion with Dr Doshi. Addendum Patient seen and examined, plan discussed with resident. Agree with above, we will follow closely Plan discussed with: Patient, Other My Orders My Orders Orders - BELA CASTILLO RESIDENT Procedure Category Date Status Time Urine Creatinine LAB 06/13/25 Logged 09:27 Urine Sodium LAB 06/13/25 Logged 09:27 Critical Care Time (mins): 35 BELA CASTILLO Jun 13, 2025 11:48 CARLOTTA DOSHI MD Jun 13, 2025 16:15
[2025-06-13] MEDS: MAGNESIUM SULFATE 1GM/100ML 100 ML IV ONE (12:46)
[2025-06-13] MEDS: POTASSIUM EFFERVESENT TAB 25 MEQ GT ONE (14:15)
--- NOTE | 2025-06-13 15:47 | DVHPN2 ---
Subjective Patient's ICU currently off of isoproterenol drip. Reviewed: Care Plan Changes from previous H/P or p: No Changes Objective Vitals Vital Signs Date Time Temp Pulse Resp B/P (MAP) Pulse Ox O2 Delivery O2 Flow Rate FiO2 06/13/25 15:22 165/96 06/13/25 12:00 58 06/13/25 11:45 98 06/13/25 11:30 11 06/13/25 08:30 98.3 98.3 06/13/25 08:00 Nasal Cannula* 3 32 Intake/Output Intake and Output 06/13/25 07:00 Intake Total 1354.2 ml Output Total 3050 ml Balance -1695.8 ml Intake Oral 250 ml IV Total 1104.2 ml Output Urine Total 3050 ml Exam HEENT pupils are reactive Neck is supple CV is S1-S2 AFib with a bradycardia into 38-40 Respiratory bilateral clear GI positive bowel sound Extremity no edema AD WRITER no motor Medications Current Medications Medications Dose Ordered Sig/Phoebe Route Start Time Stop Time Status Last Admin Dose Admin Nitroglycerin 0.4 mg Q5MINP PRN SL 06/11/25 20:00 Morphine Sulfate 2 mg Q30M PRN IV 06/11/25 20:00 Atorvastatin Calcium 10 mg HS PO 06/11/25 22:00 06/12/25 21:32 10 MG Ondansetron HCl 4 mg Q4HP PRN IV 06/11/25 20:15 Hydralazine HCl 10 mg Q6HP PRN IV 06/11/25 23:00 06/13/25 15:22 10 MG Atropine Sulfate 1 mg PRN PRN IV 06/12/25 14:00 Sodium Chloride 1,000 ml @ 60 mls/hr [id number] IV 06/12/25 16:15 06/13/25 07:50 60 MLS/HR Isoproterenol HCl 1 mg/Dextrose 255 ml @ 30.6 mls/hr Q8H20M IV 06/12/25 16:30 06/12/25 18:50 30.6 MLS/HR Laboratory Results Laboratory Tests 06/13/25 03:12 Chemistry Test 06/12/25 16:19 06/13/25 03:12 Calcium Level 9.6 mg/dL (8.7-10.4) 9.6 mg/dL (8.7-10.4) Magnesium Level 1.8 mg/dL (1.6-2.6) 1.7 mg/dL (1.6-2.6) Lipid panel Test 06/13/25 03:12 Cholesterol Level 168 mg/dL (< 200) HDL Cholesterol 50 mg/dL (40-59) Triglycerides Level 74 mg/dL (< 150) Urinalysis Test 06/11/25 19:58 Urine Color Light-yellow (Yellow) Urine Clarity Clear (Clear) Urine pH 5.5 (5.0-9.0) Urine Specific [place] 1.009 (1.001-1.035) Urine Protein Trace (Negative) H Urine Ketones Negative (Negative) Urine Blood Negative /uL (Negative) Urine Nitrite Negative (Negative) Urine Bilirubin Negative (Negative) Urine Urobilinogen Normal mg/dL (Negative) Urine Leukocyte Esterase Negative /uL (Negative) Urine RBC 1 /hpf (0 - 3) Urine Microscopic WBC 1 /HPF (0-3) Urine Squamous Epithelial Cells None seen /hpf (<5) Urine Bacteria None seen /hpf (None Seen) Urine Sperm Present /hpf (None Seen) Urine Glucose Normal mg/dL (Normal) Microbiology Microbiology Date/Time Source Procedure Growth Status 06/12/25 17:14 Nose MRSA Screen - Final Complete Assessment/Plan Assessment/Plan 70-year-old male with a known history of hypertension, dyslipidemia, CKD, history of CVA presented to the hospital with the increasing shortness a breath or chest pain found to have 1. AFib with slow ventricular response was on Eliquis and metoprolol which will be on hold 2. Hypertensive urgency 3. Acute metabolic encephalopathy 4. CKD 4. Hypokalemia 6. History of CVA -hold dopamine hold beta mary, continue isoproterenol drip cardiology consultation, upgraded the patient to D OU. Plan discussed with: Patient My Orders Orders - MOR MARADIAGA MD Procedure Category Date Status Time Transfer Orders XFER 06/12/25 Transmitted 16:44 Date of Service: Jun 13, 2025 Billing Provider: MOR MARADIAGA MD Common Visit Codes: [id number] INP/OBS CARE(MOD) MOR MARADIAGA MD Jun 13, 2025 15:47
[2025-06-13 19:14] LABS: Potassium 3.7 mmol/L (3.5-5.1); Sodium 143 mmol/L (136-145)
[2025-06-13 19:15] LABS: Anion Gap 10 (5-15); Carbon Dioxide 25 mmol/L (20-31)
[2025-06-13 19:16] LABS: Calcium 9.4 mg/dL (8.7-10.4)
[2025-06-13 19:20] LABS: Glucose 83 mg/dL (74-106)
[2025-06-13 19:23] LABS: Blood Urea Nitrogen 25 mg/dL (9-23)
[2025-06-13 19:24] LABS: BUN/Creatinine Ratio 7.9 (10.0-20.0); Chloride 108 mmol/L (98-107)
[2025-06-14] VITALS (56 sets, daily range): BP systolic 139–179; BP diastolic 82–120; PULSE 39–108; RESP 11–29; TEMP 98–98.4; O2SAT 79–100
[2025-06-14] MEDS: ATROPINE SULF 1 MG/10ml SYR IV PRN (01:57)
[2025-06-14 03:44] LABS: Anion Gap 11 (5-15); Carbon Dioxide 23 mmol/L (20-31); Sodium 142 mmol/L (136-145)
[2025-06-14 03:45] LABS: Calcium 9.6 mg/dL (8.7-10.4)
[2025-06-14 03:46] LABS: Hematocrit 46.1 % (41.0-53.0); Hemoglobin 15.3 g/dL (13.5-17.5); Mean Corpuscular Hemoglobin 28.7 pg (28.0-32.0); Mean Corpuscular Volume 86.2 fL (80.0-100.0); Nucleated Red Blood Cells % 0.4 %
[2025-06-14 03:50] LABS: BUN/Creatinine Ratio 7.3 (10.0-20.0); Blood Urea Nitrogen 22 mg/dL (9-23); Glucose 75 mg/dL (74-106)
[2025-06-14 03:57] LABS: Chloride 108 mmol/L (98-107); Potassium 3.4 mmol/L (3.5-5.1)
[2025-06-14 04:26] LABS: INR 1.02 (0.9-1.15); Partial Thromboplastin Time 27.6 SEC (24.5-34.5); Prothrombin Time 10.8 sec (9.3-11.8)
--- NOTE | 2025-06-14 09:46 | ECG ---
[facility] Test Date: 2025-06-13 Test Time: 10:58:28 Pat Name: JARED SUTHERLAND Department: ICU Room: [address] [place] [address] A Gender: M Hooker Inspector: JAHAIRA : 1955 Requested By: MALORIE BROWNE Order Number: [id number] Reading MD: Alverto Manriquez Measurements Intervals [place] Rate: 38 P: 0 VT: 0 QRS: 2 QRSD: 86 T: 237 QT: 511 QTc: 407 Interpretive Statements Atrial fibrillation Borderline low voltage, extremity leads LVH with secondary repolarization abnormality Electronically Signed On 06-15-2025 16:18:20 PDT by Alverto Manriquez Please click the below link to view image of tracing.
--- NOTE | 2025-06-14 10:45 | ECG ---
[facility] Test Date: 2025-06-11 Test Time: 18:25:13 Pat Name: JARED SUTHERLAND Department: ED Room: [address] [place] [address] A Gender: M Business Education Teacher: madison : 1955 Requested By: LUCIEN CHE Order Number: [id number] Reading MD: Alverto Manriquez Measurements Intervals [place] Rate: 34 P: 0 MT: 0 QRS: 32 QRSD: 254 T: 245 QT: 537 QTc: 404 Interpretive Statements Atrial fibrillation Left bundle branch block Electronically Signed On 06-15-2025 16:20:27 PDT by Alverto Manriquez Please click the below link to view image of tracing.
--- NOTE | 2025-06-14 10:45 | ECG ---
[facility] Test Date: 2025-06-11 Test Time: 18:24:31 Pat Name: JARED SUTHERLAND Department: ED Room: [address] [place] [address] A Gender: M Full Time Staff Interpreter: madison : 1955 Requested By: LUCIEN CHE Order Number: [id number] Reading MD: Alverto Manriquez Measurements Intervals [place] Rate: 46 P: 0 ME: 0 QRS: 24 QRSD: 100 T: 244 QT: 511 QTc: 447 Interpretive Statements Atrial fibrillation LVH with secondary repolarization abnormality Electronically Signed On 06-15-2025 16:20:23 PDT by Alverto Manriquez Please click the below link to view image of tracing.
[2025-06-14] MEDS: LIDOCAINE 2%HCL (LOCAL ANESTH.) INJ 20ML MDV ONE ×2 (11:46→13:41)
[2025-06-14] MEDS: fentaNYL CITRATE 100 MCG/2 ML VL ONE ×2 (11:46→13:43)
[2025-06-14] MEDS: MIDAZOLAM HCL 2MG/2ML 2ml VIAL (1mg/ml) ONE ×2 (11:46→13:42)
--- NOTE | 2025-06-14 11:57 | ECG ---
[facility] Test Date: 2025-06-12 Test Time: 16:08:59 Pat Name: JARED SUTHERLAND Department: ED Room: [address] [place] [address] A Gender: M Safekeeping Clerk: constantin : 1955 Requested By: LUCIEN CHE Order Number: [id number] Reading MD: Alverto Manriquez Measurements Intervals [place] Rate: 42 P: 0 NE: 0 QRS: 26 QRSD: 123 T: 231 QT: 530 QTc: 443 Interpretive Statements Atrial fibrillation LVH with IVCD and secondary repol abnrm Electronically Signed On 06-15-2025 16:20:37 PDT by Alverto Manriquez Please click the below link to view image of tracing.
[2025-06-14] MEDS: IODIXANOL 320MG/ML 100ML BTL IV ONE ×2 (12:04→13:41)
[2025-06-14] MEDS: HEPARIN IN NS 1000Units/500mL 2,000 ML ONE (13:40)
[2025-06-14] MEDS: VANCOMYCIN 1GM/250ML KIT 250 ML IV ONE (13:42)
[2025-06-14] MEDS: HEPARIN SODIUM (PORCINE) 5000 UNITS/ML 1ML VIAL ONE (13:46)
[2025-06-14] MEDS: hydrALAZINE HCL 20 MG/ML VL ONE (14:29)
--- NOTE | 2025-06-14 14:31 | DVHOP2 ---
Operative Report - 2 Report Details Date: 06/14/25 Preop Diagnosis: Tachy-shabbir syndrome, chronotropic incompetence Postop Diagnosis: Successful placement of micro ventricular pacemaker Surgeon: Karishma Manriquez MD Anesthesiologist: Conscious sedation Anesthesia: Mac, Local Consent: The patient was informed of the risks and benefits of the procedure. These include but are not limited to complications of anesthesia, postoperative infection, incomplete relief of symptoms, recurrence of symptoms, damage to blood vessels, nerves and tendons, deep venous thrombosis, pulmonary embolism and possible need for repeat surgery in the future. Complications: No complications Indications for Surgery: Sick sinus syndrome. Chronotropic incompetence Name of Procedure Performed Micra/permanent pacemaker implantation Procedure Details Procedure Details: Prior local anesthesia with 2% lidocaine to the right groin and full informed consent a plane an under fluoroscopic guidance we placed a slowly three [place] sheath into the femoral vein which a micro device was placed under fluoroscopic guidance. Adequate positioning into the interventricular septum is noted in the [place] and [place] views. Adequate capture and sensitivity thresholds were obtained left main device was deployed without difficulty. After pulling the sheath we sutured in figure of and patient tolerated the procedure well without any complications hemostasis was adequately obtained. An initial 25 mg bolus of heparin was given once the sheath was inserted. Micro device is a model number MC2 AVR1, serial number [id number] sql architect is [employer] implanted into the RV septum measured data with a right ventricular threshold R-wave of 7.4 with an impedance of 680 Ohms pacing thresholds at 1.25 volts and 0.24 milliseconds V pacing parameters were RV at 2.5 with a pulse with a 0.24 sensitivity of 2 mV. Patient tolerated procedure well there were no complications. Condition Good Disposition Still a Patient Date of Service: Jun 14, 2025 Billing Provider: KARISHMA MANRIQUEZ Sr., MD Cardiology Common Codes: [id number] INP/OBS CARE (High) Card. Pacer Implants/Gen [id number] SING LEAD PACER (MICRA DEVICE INSERTED) KARISHMA MANRIQUEZ Sr., MD Jun 14, 2025 14:31
--- NOTE | 2025-06-14 16:32 | DVHPN2 ---
Subjective Patient is status post pacemaker placement. Reviewed: Care Plan Changes from previous H/P or p: No Changes Objective Vitals Vital Signs Date Time Temp Pulse Resp B/P (MAP) Pulse Ox O2 Delivery O2 Flow Rate FiO2 06/14/25 16:00 16 96 Nasal Cannula* 3 32 06/14/25 16:00 86 06/14/25 12:30 168/93 (118) 06/14/25 04:00 98.2 98.2 Intake/Output Intake and Output 06/14/25 07:00 Intake Total 1870.6 ml Output Total 675 ml Balance 1195.6 ml Intake Oral 300 ml IV Total 1570.6 ml Output Urine Total 675 ml Stool Total 0 ml Exam HEENT pupils are reactive Neck is supple CV is S1-S2 AFib with a bradycardia into 38-40 Respiratory bilateral clear GI positive bowel sound Extremity no edema 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 Medications Current Medications Medications Dose Ordered Sig/Phoebe Route Start Time Stop Time Status Last Admin Dose Admin Nitroglycerin 0.4 mg Q5MINP PRN SL 06/11/25 20:00 Morphine Sulfate 2 mg Q30M PRN IV 06/11/25 20:00 Atorvastatin Calcium 10 mg HS PO 06/11/25 22:00 06/13/25 21:34 10 MG Ondansetron HCl 4 mg Q4HP PRN IV 06/11/25 20:15 Hydralazine HCl 10 mg Q6HP PRN IV 06/11/25 23:00 06/14/25 06:38 10 MG Atropine Sulfate 1 mg PRN PRN IV 06/12/25 14:00 06/14/25 01:57 1 MG Sodium Chloride 1,000 ml @ 60 mls/hr [id number] IV 06/12/25 16:15 06/14/25 01:03 60 MLS/HR Isoproterenol HCl 1 mg/Dextrose 255 ml @ 30.6 mls/hr Q8H20M IV 06/12/25 16:30 06/12/25 18:50 30.6 MLS/HR Laboratory Results Laboratory Tests 06/14/25 02:51 Chemistry Test 06/13/25 16:44 06/14/25 02:51 Calcium Level 9.4 mg/dL (8.7-10.4) 9.6 mg/dL (8.7-10.4) Coagulation Test 06/14/25 02:51 Prothrombin Time 10.8 sec (9.3-11.8) Prothrombin Time INR 1.02 (0.9-1.15) Activated Partial Thromboplast Time 27.6 SEC (24.5-34.5) Urinalysis Test 06/11/25 19:58 Urine Color Light-yellow (Yellow) Urine Clarity Clear (Clear) Urine pH 5.5 (5.0-9.0) Urine Specific [place] 1.009 (1.001-1.035) Urine Protein Trace (Negative) H Urine Ketones Negative (Negative) Urine Blood Negative /uL (Negative) Urine Nitrite Negative (Negative) Urine Bilirubin Negative (Negative) Urine Urobilinogen Normal mg/dL (Negative) Urine Leukocyte Esterase Negative /uL (Negative) Urine RBC 1 /hpf (0 - 3) Urine Microscopic WBC 1 /HPF (0-3) Urine Squamous Epithelial Cells None seen /hpf (<5) Urine Bacteria None seen /hpf (None Seen) Urine Sperm Present /hpf (None Seen) Urine Glucose Normal mg/dL (Normal) Microbiology Microbiology Date/Time Source Procedure Growth Status 06/12/25 17:14 Nose MRSA Screen - Final Complete Assessment/Plan Assessment/Plan 70-year-old male with a known history of hypertension, dyslipidemia, CKD, history of CVA presented to the hospital with the increasing shortness a breath or chest pain found to have 1. AFib with slow ventricular response was on Eliquis and metoprolol which will be on hold 2. Symptomatic bradycardia status post pacemaker placement 3. Hypertensive urgency 4. Acute metabolic encephalopathy, improved 5. CKD 6. History of CVA -patient is status post pacemaker placement, follow up Cardiology recommendations. Plan discussed with: Patient Date of Service: Jun 14, 2025 Billing Provider: MOR MARADIAGA MD Common Visit Codes: [id number] INP/OBS CARE(MOD) MOR MARADIAGA MD Jun 14, 2025 16:32
--- NOTE | 2025-06-14 18:01 | DVHPN2 ---
Progress Note Date Seen: Jun 14, 2025 Resident Creating Document: BELA CASTILLO RESIDENT Medical Necessity Reason Pt with a Central, PICC or Fol: Yes The following are medically ne: Daley Catheter Subjective Review of Systems 70 years old male with past medical history of hypertension, CVA, AFib, ?Chronic kidney disease, presented with chief complaints of chest pain and worsening confusion. patient found to be bradycardic, and was started on isoproterenol by the Cardiology team and transferred to ICU Patient was also found to be in urinary retention, as when daley catheter was placed, patient had 2700 cc uop after that overnight. 06/14/2025 Patient is currently seen in ICU Patient is mildly confused and is a poor historian Mentioned no active complaints Isoproterenol was discontinued by the hydraulic auto jack mechanic pt planned to have Pacemaker Placement Input output 1.9 L/0.67 L with a net positive of 1.2 L Objective vital signs Vital Sign Date Time Temp Pulse Resp B/P (MAP) Pulse Ox O2 Delivery O2 Flow Rate FiO2 06/14/25 17:30 98.0 70 18 166/112 (130) 98 98.0 06/14/25 16:00 Nasal Cannula* 3 32 Total Intake and Output 06/13/25 06/13/25 06/14/25 15:00 23:00 07:00 Intake Total 610.6 ml 780 ml 480 ml Output Total 325 ml 350 ml Balance 610.6 ml 455 ml 130 ml medications Current Medications Medications Dose Ordered Sig/Phoebe Route Start Time Stop Time Status Last Admin Dose Admin Nitroglycerin 0.4 mg Q5MINP PRN SL 06/11/25 20:00 Morphine Sulfate 2 mg Q30M PRN IV 06/11/25 20:00 Atorvastatin Calcium 10 mg HS PO 06/11/25 22:00 06/13/25 21:34 10 MG Ondansetron HCl 4 mg Q4HP PRN IV 06/11/25 20:15 Hydralazine HCl 10 mg Q6HP PRN IV 06/11/25 23:00 06/14/25 16:50 10 MG Atropine Sulfate 1 mg PRN PRN IV 06/12/25 14:00 06/14/25 01:57 1 MG Sodium Chloride 1,000 ml @ 60 mls/hr [id number] IV 06/12/25 16:15 06/14/25 01:03 60 MLS/HR Isoproterenol HCl 1 mg/Dextrose 255 ml @ 30.6 mls/hr Q8H20M IV 06/12/25 16:30 06/12/25 18:50 30.6 MLS/HR Examination Examination General Appearance: Mildly confused HEENT: EOMI Respiratory: Clear to auscultation, Normal air movement Cardiovascular: Regular rate, Normal S1, Normal S2 Abdominal: Normal bowel sounds Extremities: No cyanosis, No edema, Normal pulses, No tenderness/swelling Skin: No rashes, No breakdown Neuro: Confused laboratory and microbiology Laboratory Tests 06/14/25 02:51 Test 06/14/25 02:51 Range/Units Serum Glucose 75 74-106 mg/dL Microbiology Date/Time Source Procedure Growth Status 06/12/25 17:14 Nose MRSA Screen - Final Complete Labs and/or images reviewed: Labs reviewed by me, Image(s) reviewed by me Problem List/Assessment/Plan Problem List/Assessment/Plan Assessment/plan #Acute kidney injury possible obstructive etiology status post Daley over ? CKD -unknown baseline kidney function as of now Input output 1.9 L/0.67 L with a net positive of 1.2 L Labs Serum creatinine improved from 3.17 to 3.03 today # hypokalemia # hypomagnesemia # bradycardia status post pacemaker placement # Hypertension # history of stroke # history of atrial fibrillation Plan Renal diet Strict input and output Monitor kidney function and electrolytes including magnesium Continue with Daley catheter Continue with IV fluids at 60 cc per hour Patient is a poor historian, unknown baseline kidney function Case discussion with Dr Leach. Plan discussed with: Patient, Other BELA CASTILLO RESIDENT Jun 14, 2025 18:01
--- NOTE | 2025-06-14 20:18 | DVH ---
CHEST RADIOGRAPH REASON FOR EXAM: Pacemaker placement COMPARISON: XY CHEST PORTABLE on DOS: 06/11/25 TECHNIQUE: One view of the chest is provided FINDINGS: The cardiomediastinal silhouette is within normal limits for technique. A small electronic device projects over the heart.. There is no focal airspace disease. There is no pneumothoraxThere is no significant pleural effusion. No acute bony abnormality is identified. IMPRESSION: No radiographic evidence of acute cardiopulmonary process.
[2025-06-15] VITALS (31 sets, daily range): BP systolic 116–171; BP diastolic 79–117; PULSE 68–118; RESP 11–25; TEMP 97.8–98.6; O2SAT 87–100
[2025-06-15 03:27] LABS: Hematocrit 42.9 % (41.0-53.0); Hemoglobin 14.6 g/dL (13.5-17.5); Mean Corpuscular Hemoglobin 29.1 pg (28.0-32.0); Mean Corpuscular Volume 85.6 fL (80.0-100.0); Nucleated Red Blood Cells % 0.1 %
[2025-06-15 03:35] LABS: Sodium 144 mmol/L (136-145)
[2025-06-15 03:36] LABS: Anion Gap 10 (5-15); Carbon Dioxide 23 mmol/L (20-31)
[2025-06-15 03:37] LABS: Calcium 9.0 mg/dL (8.7-10.4); Chloride 111 mmol/L (98-107); Potassium 3.4 mmol/L (3.5-5.1)
[2025-06-15 03:41] LABS: BUN/Creatinine Ratio 11.0 (10.0-20.0); Glucose 102 mg/dL (74-106)
[2025-06-15 03:42] LABS: Blood Urea Nitrogen 33 mg/dL (9-23); Magnesium 1.7 mg/dL (1.6-2.6)
--- NOTE | 2025-06-15 06:43 | DVH ---
EXAM: XY CHEST XRAY 1 VIEW HISTORY: s/p PPM COMPARISON: XY CHEST PORTABLE on DOS: 06/14/25, XY CHEST PORTABLE on DOS: 06/11/25 TECHNIQUE: Portable AP view of the chest was performed. FINDINGS: No pneumothorax, consolidative infiltrates, or pulmonary edema. There is mild elevation of the right hemidiaphragm. The heart is enlarged. There is a left chest loop recorder. The aortic arch is calci fic. IMPRESSION: Cardiomegaly without evidence of acute intrathoracic process.
[2025-06-15] MEDS: MAGNESIUM SULFATE 1GM/100ML 100 ML IV ONE (07:22)
[2025-06-15] MEDS: POTASSIUM EFFERVESENT TAB 25 MEQ PO ONE (08:15)
[2025-06-15] MEDS ORDERED: METO-289 PO (08:37)
[2025-06-15] MEDS ORDERED: CLON0.1T PO (08:37)
[2025-06-15] MEDS ORDERED: AMLO1TAB22 PO (08:37)
[2025-06-15] MEDS ORDERED: EMPA1TAB3 PO (08:37)
[2025-06-15] MEDS ORDERED: ISOS10TA2 PO (08:37)
[2025-06-15] MEDS ORDERED: HYDR25TA88 PO (08:37)
[2025-06-15] MEDS ORDERED: APIX2.5T PO (08:37)
--- NOTE | 2025-06-15 12:06 | DVHPN2 ---
Consult Progress Note Objective vital signs Vital Sign Date Time Temp Pulse Resp B/P (MAP) Pulse Ox O2 Delivery O2 Flow Rate FiO2 06/15/25 11:30 70 17 116/85 (95) 100 06/15/25 10:00 Nasal Cannula* 3 32 06/15/25 08:00 97.8 97.8 Total Intake and Output 06/14/25 06/14/25 06/15/25 15:00 23:00 07:00 Intake Total 480 ml 560 ml 660 ml Output Total 1100 ml 350 ml Balance 480 ml -540 ml 310 ml medications Current Medications Medications Dose Ordered Sig/Phoebe Route Start Time Stop Time Status Last Admin Dose Admin Nitroglycerin 0.4 mg Q5MINP PRN SL 06/11/25 20:00 Morphine Sulfate 2 mg Q30M PRN IV 06/11/25 20:00 Atorvastatin Calcium 10 mg HS PO 06/11/25 22:00 06/14/25 21:42 10 MG Ondansetron HCl 4 mg Q4HP PRN IV 06/11/25 20:15 Hydralazine HCl 10 mg Q6HP PRN IV 06/11/25 23:00 06/15/25 03:07 10 MG Atropine Sulfate 1 mg PRN PRN IV 06/12/25 14:00 06/14/25 01:57 1 MG Sodium Chloride 1,000 ml @ 60 mls/hr [id number] IV 06/12/25 16:15 06/15/25 00:27 60 MLS/HR Isoproterenol HCl 1 mg/Dextrose 255 ml @ 30.6 mls/hr Q8H20M IV 06/12/25 16:30 06/12/25 18:50 30.6 MLS/HR Metoprolol Succinate 50 mg DAILY PO 06/15/25 10:00 Amlodipine Besylate 10 mg DAILY PO 06/15/25 10:00 Hydralazine HCl 25 mg Q8HR PO 06/15/25 14:00 Apixaban 2.5 mg BID PO 06/15/25 22:00 laboratory and microbiology Laboratory Tests 06/15/25 02:52 Test 06/15/25 02:52 Range/Units Serum Glucose 102 74-106 mg/dL Problem List/Assessment/Plan Problem List/Assessment/Plan Problem List/Assessment/Plan Atrial fibrillation with slow ventricular rate (on metoprolol and Eliquis) Hypertensive urgency Hyperlipidemia Chronic kidney disease Hypokalemia Hx of CVA Plan/Recommendations (Dr. Manriquez): * Transthoracic echocardiogram reveals EF 60% * Avoid AV serenity blocking agents * Consider transcutaneous pacing versus isoproterenol if heart rate less than 35bpm and sustaining * Blood pressure control * [id number] VASc score: 5 points, HAS-BLED score: 3 points Case discussed with . Initially, a nuclear stress test was also ordered given diffuse ST segment changes on initial 12 lead electrocardiogram. The patient denies any cardiac symptoms such as chest pain or shortness of breath. Given poor renal function, the patient may not be an ideal candidate for coronary angiogram with left heart catheterization. Explained situation to daughter via telephone. Daughter is in agreement and states that she would only like for the patient to undergo a pacemaker at this time and no other cardiac procedures. S/P Micra implantation. HR stable. BP high, resumed on home medication, continue monitoring and titrate as tolerated. Eliquis home dose resumed for stroke prophylaxis. Thank you for allowing us to care for this patient. Please call with any questions or concerns.Stable for DC pending no significant abnormalities on interrogation and once BP stable. Plan discussed with: Patient, Other (Bedside RN) Date of Service: Jun 15, 2025 Billing Provider: AMANUEL LUCERO Common Visit Codes: [id number] INP/OBS CARE(HIGH), [id number] CARE 30-74 MIN AMANUEL LUCERO Jun 15, 2025 12:06
[2025-06-15] MEDS: METOPROLOL SUCCINATE XL 50 MG TAB PO SCH (14:23)
--- NOTE | 2025-06-15 15:51 | DVHPN2 ---
Progress Note Date Seen: Jun 15, 2025 Medical Necessity Reason Pt with a Central, PICC or Fol: Yes The following are medically ne: Ahumada Catheter Subjective Patient reports: No new complaints, Feels better Objective vital signs Vital Sign Date Time Temp Pulse Resp B/P (MAP) Pulse Ox O2 Delivery O2 Flow Rate FiO2 06/15/25 14:23 70 142/94 06/15/25 14:00 20 100 Nasal Cannula* 3 32 06/15/25 08:00 97.8 97.8 Total Intake and Output 06/14/25 06/14/25 06/15/25 15:00 23:00 07:00 Intake Total 480 ml 560 ml 660 ml Output Total 1100 ml 350 ml Balance 480 ml -540 ml 310 ml medications Current Medications Medications Dose Ordered Sig/Phoebe Route Start Time Stop Time Status Last Admin Dose Admin Nitroglycerin 0.4 mg Q5MINP PRN SL 06/11/25 20:00 Morphine Sulfate 2 mg Q30M PRN IV 06/11/25 20:00 Atorvastatin Calcium 10 mg HS PO 06/11/25 22:00 06/14/25 21:42 10 MG Ondansetron HCl 4 mg Q4HP PRN IV 06/11/25 20:15 Hydralazine HCl 10 mg Q6HP PRN IV 06/11/25 23:00 06/15/25 03:07 10 MG Atropine Sulfate 1 mg PRN PRN IV 06/12/25 14:00 06/14/25 01:57 1 MG Isoproterenol HCl 1 mg/Dextrose 255 ml @ 30.6 mls/hr Q8H20M IV 06/12/25 16:30 06/12/25 18:50 30.6 MLS/HR Metoprolol Succinate 50 mg DAILY PO 06/15/25 10:00 06/15/25 14:23 50 MG Amlodipine Besylate 10 mg DAILY PO 06/15/25 10:00 06/15/25 14:03 10 MG Hydralazine HCl 25 mg Q8HR PO 06/15/25 14:00 Apixaban 2.5 mg BID PO 06/15/25 22:00 Examination: GENERAL:Normal, HEENT:Normal, NECK:Normal, LUNGS:Normal, CVS:Normal, ABDOMEN:Normal, MSK:Normal, SKIN:Normal, NEURO:Normal, :Normal laboratory and microbiology Laboratory Tests 06/15/25 02:52 Test 06/15/25 02:52 Range/Units Serum Glucose 102 74-106 mg/dL Microbiology Date/Time Source Procedure Growth Status 06/12/25 17:14 Nose MRSA Screen - Final Complete Problem List/Assessment/Plan Problem List/Assessment/Plan Assessment/plan #Acute kidney injury possible obstructive etiology status post Ahumada + ckd 4 probably #hypokalemia # hypomagnesemia # bradycardia # Hypertension # history of stroke # history of atrial fibrillation Plan dc ivf need voiding trial prior to dc k replace Plan discussed with: Patient CARLOTTA DOSHI MD Jun 15, 2025 15:50
[2025-06-15] MEDS: SPIRONOLACTONE 25 MG TAB PO ONE (16:08)
--- NOTE | 2025-06-15 17:04 | DVHPN2 ---
Subjective Patient is status post pacemaker placement. Patient has stated he is feeling much better. Reviewed: Care Plan Changes from previous H/P or p: No Changes Objective Vitals Vital Signs Date Time Temp Pulse Resp B/P (MAP) Pulse Ox O2 Delivery O2 Flow Rate FiO2 06/15/25 16:01 20 99 Nasal Cannula* 3 32 06/15/25 16:00 69 06/15/25 15:30 135/98 (110) 06/15/25 12:00 97.8 97.8 Intake/Output Intake and Output 06/15/25 07:00 Intake Total 1760 ml Output Total 1450 ml Balance 310 ml Intake Oral 320 ml IV Total 1440 ml Output Urine Total 1450 ml Stool Total 0 ml Exam HEENT pupils are reactive Neck is supple CV is S1-S2 AFib with a bradycardia into 38-40 Respiratory bilateral clear GI positive bowel sound 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 no 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 Current Medications Medications Dose Ordered Sig/Phoebe Route Start Time Stop Time Status Last Admin Dose Admin Nitroglycerin 0.4 mg Q5MINP PRN SL 06/11/25 20:00 Morphine Sulfate 2 mg Q30M PRN IV 06/11/25 20:00 Atorvastatin Calcium 10 mg HS PO 06/11/25 22:00 06/14/25 21:42 10 MG Ondansetron HCl 4 mg Q4HP PRN IV 06/11/25 20:15 Hydralazine HCl 10 mg Q6HP PRN IV 06/11/25 23:00 06/15/25 03:07 10 MG Atropine Sulfate 1 mg PRN PRN IV 06/12/25 14:00 06/14/25 01:57 1 MG Metoprolol Succinate 50 mg DAILY PO 06/15/25 10:00 06/15/25 14:23 50 MG Amlodipine Besylate 10 mg DAILY PO 06/15/25 10:00 06/15/25 14:03 10 MG Hydralazine HCl 25 mg Q8HR PO 06/15/25 14:00 Apixaban 2.5 mg BID PO 06/15/25 22:00 Spironolactone 50 mg DAILY PO 06/16/25 10:00 Laboratory Results Laboratory Tests 06/15/25 02:52 Chemistry Test 06/15/25 02:52 Calcium Level 9.0 mg/dL (8.7-10.4) Magnesium Level 1.7 mg/dL (1.6-2.6) Urinalysis Test 06/11/25 19:58 Urine Color Light-yellow (Yellow) Urine Clarity Clear (Clear) Urine pH 5.5 (5.0-9.0) Urine Specific [place] 1.009 (1.001-1.035) Urine Protein Trace (Negative) H Urine Ketones Negative (Negative) Urine Blood Negative /uL (Negative) Urine Nitrite Negative (Negative) Urine Bilirubin Negative (Negative) Urine Urobilinogen Normal mg/dL (Negative) Urine Leukocyte Esterase Negative /uL (Negative) Urine RBC 1 /hpf (0 - 3) Urine Microscopic WBC 1 /HPF (0-3) Urine Squamous Epithelial Cells None seen /hpf (<5) Urine Bacteria None seen /hpf (None Seen) Urine Sperm Present /hpf (None Seen) Urine Glucose Normal mg/dL (Normal) Microbiology Microbiology Date/Time Source Procedure Growth Status 06/12/25 17:14 Nose MRSA Screen - Final Complete Assessment/Plan Assessment/Plan 70-year-old male with a known history of hypertension, dyslipidemia, CKD, history of CVA presented to the hospital with the increasing shortness a breath or chest pain found to have 1. AFib with slow ventricular response was on Eliquis and metoprolol which will be on hold 2. Symptomatic bradycardia status post pacemaker placement 3. Hypertensive urgency 4. Acute metabolic encephalopathy, improved 5. CKD 6. History of CVA -patient is status post pacemaker placement, follow up Cardiology recommendations. -may downgraded to telemetry if ok with Cardiology. Plan discussed with: Patient My Orders Orders - MOR MARADIAGA MD Procedure Category Date Status Time Transfer Orders XFER 06/15/25 Transmitted 14:52 D/C Ahumada PETER 06/15/25 In Process 15:30 Cardiac DIET 06/15/25 Transmitted Diet-2gna,Lofat,Lochol Dinner Date of Service: Jun 15, 2025 Billing Provider: MOR MARADIAGA MD Common Visit Codes: [id number] INP/OBS CARE(MOD) MOR MARADIAGA MD Jun 15, 2025 17:04
[2025-06-15] MEDS: APIXABAN 2.5 MG TAB PO SCH (22:07)
[2025-06-16] VITALS (8 sets, daily range): BP systolic 136–156; BP diastolic 87–106; PULSE 66–70; RESP 14–20; TEMP 97.3–98.4; O2SAT 93–98
--- NOTE | 2025-06-16 08:48 | DVHPN2 ---
Progress Note Date Seen: Jun 16, 2025 Medical Necessity Reason Pt with a Central, PICC or Fol: Yes The following are medically ne: Ahumada Catheter Subjective Patient reports: No new complaints Review of Systems: Deferred Objective vital signs Vital Sign Date Time Temp Pulse Resp B/P (MAP) Pulse Ox O2 Delivery O2 Flow Rate FiO2 06/16/25 06:20 165/116 06/16/25 05:00 98.0 66 18 97 98.0 06/15/25 20:00 Nasal Cannula* 2 28 Total Intake and Output 06/15/25 06/15/25 06/16/25 15:00 23:00 07:00 Intake Total 520 ml 800 ml 700 ml Output Total 625 ml 300 ml Balance 520 ml 175 ml 400 ml medications Current Medications Medications Dose Ordered Sig/Phoebe Route Start Time Stop Time Status Last Admin Dose Admin Nitroglycerin 0.4 mg Q5MINP PRN SL 06/11/25 20:00 Morphine Sulfate 2 mg Q30M PRN IV 06/11/25 20:00 Atorvastatin Calcium 10 mg HS PO 06/11/25 22:00 06/15/25 22:06 10 MG Ondansetron HCl 4 mg Q4HP PRN IV 06/11/25 20:15 Hydralazine HCl 10 mg Q6HP PRN IV 06/11/25 23:00 06/16/25 06:20 10 MG Atropine Sulfate 1 mg PRN PRN IV 06/12/25 14:00 06/14/25 01:57 1 MG Metoprolol Succinate 50 mg DAILY PO 06/15/25 10:00 06/15/25 14:23 50 MG Amlodipine Besylate 10 mg DAILY PO 06/15/25 10:00 06/15/25 14:03 10 MG Hydralazine HCl 25 mg Q8HR PO 06/15/25 14:00 06/16/25 04:48 25 MG Apixaban 2.5 mg BID PO 06/15/25 22:00 06/15/25 22:07 2.5 MG Spironolactone 50 mg DAILY PO 06/16/25 10:00 Examination: GENERAL:Normal, CVS:Abnormal (Bradycardia resolved), MSK:Normal, SKIN:Normal, NEURO:Normal laboratory and microbiology Laboratory Tests 06/15/25 02:52 Test 06/15/25 02:52 Range/Units Serum Glucose 102 74-106 mg/dL Microbiology Date/Time Source Procedure Growth Status 06/12/25 17:14 Nose MRSA Screen - Final Complete Problem List/Assessment/Plan Problem List/Assessment/Plan Assessment/plan #Acute kidney injury possible obstructive etiology status post Ahumada + ckd 4 probably #hypokalemia # hypomagnesemia # bradycardia # Hypertension # history of stroke # history of atrial fibrillation Plan dc ivf need voiding trial prior to dc k replace Renal function stable at around Chronic kidney disease four Trial of spironolactone Downgraded from ICU Plan discussed with: Patient My Orders My Orders Orders - CARLOTTA DOSHI MD Procedure Category Date Status Time Spironolactone PHA 06/16/25 In Process (Aldactone) 10:00 CARLOTTA DOSHI MD Jun 16, 2025 08:48
[2025-06-16 10:05] LABS: Chloride 105 mmol/L (98-107); Sodium 141 mmol/L (136-145)
[2025-06-16 10:06] LABS: Anion Gap 11 (5-15); Carbon Dioxide 25 mmol/L (20-31)
[2025-06-16 10:07] LABS: Calcium 9.3 mg/dL (8.7-10.4)
[2025-06-16 10:10] LABS: Potassium 3.1 mmol/L (3.5-5.1)
[2025-06-16 10:11] LABS: BUN/Creatinine Ratio 11.7 (10.0-20.0)
[2025-06-16 10:13] LABS: Blood Urea Nitrogen 31 mg/dL (9-23); Glucose 122 mg/dL (74-106)
[2025-06-16] MEDS: SPIRONOLACTONE 25 MG TAB PO SCH (10:25)
--- NOTE | 2025-06-16 11:59 | DVHPN2 ---
Consult Progress Note Objective vital signs Vital Sign Date Time Temp Pulse Resp B/P (MAP) Pulse Ox O2 Delivery O2 Flow Rate FiO2 06/16/25 10:26 70 143/100 06/16/25 09:22 98.3 18 96 98.3 06/16/25 08:00 Room Air* 0 21 Total Intake and Output 06/15/25 06/15/25 06/16/25 15:00 23:00 07:00 Intake Total 520 ml 800 ml 700 ml Output Total 625 ml 300 ml Balance 520 ml 175 ml 400 ml medications Current Medications Medications Dose Ordered Sig/Phoebe Route Start Time Stop Time Status Last Admin Dose Admin Nitroglycerin 0.4 mg Q5MINP PRN SL 06/11/25 20:00 Morphine Sulfate 2 mg Q30M PRN IV 06/11/25 20:00 Atorvastatin Calcium 10 mg HS PO 06/11/25 22:00 06/15/25 22:06 10 MG Ondansetron HCl 4 mg Q4HP PRN IV 06/11/25 20:15 Hydralazine HCl 10 mg Q6HP PRN IV 06/11/25 23:00 06/16/25 06:20 10 MG Atropine Sulfate 1 mg PRN PRN IV 06/12/25 14:00 06/14/25 01:57 1 MG Metoprolol Succinate 50 mg DAILY PO 06/15/25 10:00 06/16/25 10:26 50 MG Amlodipine Besylate 10 mg DAILY PO 06/15/25 10:00 06/16/25 10:25 10 MG Hydralazine HCl 25 mg Q8HR PO 06/15/25 14:00 06/16/25 04:48 25 MG Apixaban 2.5 mg BID PO 06/15/25 22:00 06/16/25 10:26 2.5 MG Spironolactone 50 mg DAILY PO 06/16/25 10:00 06/16/25 10:25 50 MG laboratory and microbiology Laboratory Tests 06/16/25 09:30 06/15/25 02:52 Test 06/16/25 09:30 Range/Units Serum Glucose 122 H 74-106 mg/dL Problem List/Assessment/Plan Problem List/Assessment/Plan Problem List/Assessment/Plan Atrial fibrillation with slow ventricular rate (on metoprolol and Eliquis) Hypertensive urgency Hyperlipidemia Chronic kidney disease Hypokalemia Hx of CVA Plan/Recommendations (Dr. Manriquez): * Transthoracic echocardiogram reveals EF 60% * Avoid AV serenity blocking agents * Consider transcutaneous pacing versus isoproterenol if heart rate less than 35bpm and sustaining * Blood pressure control * [id number] VASc score: 5 points, HAS-BLED score: 3 points Case discussed with . Initially, a nuclear stress test was also ordered given diffuse ST segment changes on initial 12 lead electrocardiogram. The patient denies any cardiac symptoms such as chest pain or shortness of breath. Given poor renal function, the patient may not be an ideal candidate for coronary angiogram with left heart catheterization. Explained situation to daughter via telephone. Daughter is in agreement and states that she would only like for the patient to undergo a pacemaker at this time and no other cardiac procedures. S/P Micra implantation. HR stable. BP high, resumed on home medication, continue monitoring and titrate as tolerated. Eliquis home dose resumed for stroke prophylaxis. Creatinine improving, F/U neprhologyt recs. Thank you for allowing us to care for this patient. Please call with any questions or concerns. Stable for DC from cardiology standpoint. Plan discussed with: Patient Dietary Evaluation Review Comments: 1) Add renal restriction to cardiac diet 2) Encourage optimal PO intake 3) Follow-up with cardiology and nephrology 4) Continue to monitor I&O, labs, and skin integrity Expected Outcomes/Goals: 1) appetite and labs to improve 2) f/u in 3-5 days Date of Service: Jun 16, 2025 Billing Provider: AMANUEL LUCERO Common Visit Codes: [id number] INP/OBS CARE(HIGH) AMANUEL LUCERO Jun 16, 2025 11:59
--- NOTE | 2025-06-16 17:47 | DVHPN2 ---
Subjective Patient is status post pacemaker placement. Patient is more confused today, currently getting potassium supplements Reviewed: Care Plan Changes from previous H/P or p: No Changes Objective Vitals Vital Signs Date Time Temp Pulse Resp B/P (MAP) Pulse Ox O2 Delivery O2 Flow Rate FiO2 06/16/25 16:30 98.3 69 14 139/99 (112) 98 98.3 06/16/25 08:00 Room Air* 0 21 Intake/Output Intake and Output 06/16/25 07:00 Intake Total 2020 ml Output Total 925 ml Balance 1095 ml Intake Oral 1500 ml IV Total 520 ml Output Urine Total 925 ml # Voids 1 Exam HEENT pupils are reactive Neck is supple CV is S1-S2 AFib with a bradycardia into 38-40 Respiratory bilateral clear GI positive bowel sound 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 Current Medications Medications Dose Ordered Sig/Phoebe Route Start Time Stop Time Status Last Admin Dose Admin Nitroglycerin 0.4 mg Q5MINP PRN SL 06/11/25 20:00 Morphine Sulfate 2 mg Q30M PRN IV 06/11/25 20:00 Atorvastatin Calcium 10 mg HS PO 06/11/25 22:00 06/15/25 22:06 10 MG Ondansetron HCl 4 mg Q4HP PRN IV 06/11/25 20:15 Hydralazine HCl 10 mg Q6HP PRN IV 06/11/25 23:00 06/16/25 06:20 10 MG Atropine Sulfate 1 mg PRN PRN IV 06/12/25 14:00 06/14/25 01:57 1 MG Metoprolol Succinate 50 mg DAILY PO 06/15/25 10:00 06/16/25 10:26 50 MG Amlodipine Besylate 10 mg DAILY PO 06/15/25 10:00 06/16/25 10:25 10 MG Hydralazine HCl 25 mg Q8HR PO 06/15/25 14:00 06/16/25 15:20 25 MG Apixaban 2.5 mg BID PO 06/15/25 22:00 06/16/25 10:26 2.5 MG Spironolactone 50 mg DAILY PO 06/16/25 10:00 06/16/25 10:25 50 MG Laboratory Results Laboratory Tests 06/15/25 02:52 06/16/25 09:30 Chemistry Test 06/16/25 09:30 Calcium Level 9.3 mg/dL (8.7-10.4) Urinalysis Test 06/11/25 19:58 Urine Color Light-yellow (Yellow) Urine Clarity Clear (Clear) Urine pH 5.5 (5.0-9.0) Urine Specific [place] 1.009 (1.001-1.035) Urine Protein Trace (Negative) H Urine Ketones Negative (Negative) Urine Blood Negative /uL (Negative) Urine Nitrite Negative (Negative) Urine Bilirubin Negative (Negative) Urine Urobilinogen Normal mg/dL (Negative) Urine Leukocyte Esterase Negative /uL (Negative) Urine RBC 1 /hpf (0 - 3) Urine Microscopic WBC 1 /HPF (0-3) Urine Squamous Epithelial Cells None seen /hpf (<5) Urine Bacteria None seen /hpf (None Seen) Urine Sperm Present /hpf (None Seen) Urine Glucose Normal mg/dL (Normal) Microbiology Microbiology Date/Time Source Procedure Growth Status 06/12/25 17:14 Nose MRSA Screen - Final Complete Assessment/Plan Assessment/Plan 70-year-old male with a known history of hypertension, dyslipidemia, CKD, history of CVA presented to the hospital with the increasing shortness a breath or chest pain found to have 1. AFib with slow ventricular response was on Eliquis and metoprolol which will be on hold 2. Symptomatic bradycardia status post pacemaker placement 3. Hypertensive urgency 4. Acute metabolic encephalopathy, improved 5. CKD 6. History of CVA -replace potassium, recheck BMP in a.m.. -patient is status post pacemaker placement, follow up Cardiology recommendations. Plan discussed with: Patient Date of Service: Jun 16, 2025 Billing Provider: MOR MARADIAGA MD Common Visit Codes: [id number] INP/OBS CARE(MOD) MOR MARADIAGA MD Jun 16, 2025 17:47
[2025-06-16] MEDS: POTASSIUM EFFERVESENT TAB 25 MEQ PO ONE (18:45)
[2025-06-16] MEDS: POTASSIUM CHL 20MEQ/100ML 100 ML IV ONE (22:02)
[2025-06-16] MEDS: DOCUSATE SOD 100 MG CAP PO PRN (22:27)
[2025-06-17] VITALS (8 sets, daily range): BP systolic 117–139; BP diastolic 72–100; PULSE 64–71; RESP 16–18; TEMP 98.1–99; O2SAT 96–99
[2025-06-17 08:37] LABS: Hematocrit 35.8 % (41.0-53.0); Hemoglobin 12.7 g/dL (13.5-17.5); Mean Corpuscular Hemoglobin 29.9 pg (28.0-32.0); Mean Corpuscular Volume 84.2 fL (80.0-100.0); Nucleated Red Blood Cells % 0.0 %
[2025-06-17 09:12] LABS: Calcium 9.2 mg/dL (8.7-10.4); Chloride 105 mmol/L (98-107); Sodium 142 mmol/L (136-145)
[2025-06-17 09:13] LABS: Anion Gap 12 (5-15); Carbon Dioxide 25 mmol/L (20-31)
[2025-06-17 09:18] LABS: BUN/Creatinine Ratio 11.1 (10.0-20.0); Glucose 80 mg/dL (74-106); Magnesium 1.6 mg/dL (1.6-2.6)
[2025-06-17 09:20] LABS: Blood Urea Nitrogen 30 mg/dL (9-23); Potassium 3.2 mmol/L (3.5-5.1)
--- NOTE | 2025-06-17 13:40 | DVHPN2 ---
Progress Note Date Seen: Jun 17, 2025 Resident Creating Document: BELA CASTILLO RESIDENT Medical Necessity Reason Pt with a Central, PICC or Fol: Yes The following are medically ne: Daley Catheter Subjective Review of Systems 70 years old male with past medical history of hypertension, CVA, AFib, ?Chronic kidney disease, presented with chief complaints of chest pain and worsening confusion. patient found to be bradycardic, and was started on isoproterenol by the Cardiology team and transferred to ICU Patient was also found to be in urinary retention, as when daley catheter was placed, patient had 2700 cc uop after that overnight. 06/17/2025 Patient downgraded from the ICU to floors Mentioned no active complaint Objective vital signs Vital Sign Date Time Temp Pulse Resp B/P (MAP) Pulse Ox O2 Delivery O2 Flow Rate FiO2 06/17/25 13:00 98.1 64 18 130/98 (109) 96 98.1 06/16/25 20:00 Room Air* 0 21 Total Intake and Output 06/16/25 06/16/25 06/17/25 15:00 23:00 07:00 Intake Total 2200 ml 800 ml 850 ml Balance 2200 ml 800 ml 850 ml medications Current Medications Medications Dose Ordered Sig/Phoebe Route Start Time Stop Time Status Last Admin Dose Admin Nitroglycerin 0.4 mg Q5MINP PRN SL 06/11/25 20:00 Morphine Sulfate 2 mg Q30M PRN IV 06/11/25 20:00 Atorvastatin Calcium 10 mg HS PO 06/11/25 22:00 06/16/25 22:29 10 MG Ondansetron HCl 4 mg Q4HP PRN IV 06/11/25 20:15 Hydralazine HCl 10 mg Q6HP PRN IV 06/11/25 23:00 06/16/25 06:20 10 MG Atropine Sulfate 1 mg PRN PRN IV 06/12/25 14:00 06/14/25 01:57 1 MG Metoprolol Succinate 50 mg DAILY PO 06/15/25 10:00 06/17/25 09:48 50 MG Amlodipine Besylate 10 mg DAILY PO 06/15/25 10:00 06/17/25 09:49 10 MG Hydralazine HCl 25 mg Q8HR PO 06/15/25 14:00 06/17/25 05:49 25 MG Apixaban 2.5 mg BID PO 06/15/25 22:00 06/17/25 09:50 2.5 MG Spironolactone 50 mg DAILY PO 06/16/25 10:00 06/17/25 09:49 50 MG Docusate Sodium 100 mg BIDPRN PRN PO 06/16/25 22:30 06/16/25 22:27 100 MG Examination Examination General Appearance: Alert, Oriented X3, Cooperative, No acute distress HEENT: EOMI Respiratory: Clear to auscultation, Normal air movement Cardiovascular: Regular rate, Normal S1, Normal S2 Abdominal: Normal bowel sounds Extremities: No cyanosis, No edema, Normal pulses, No tenderness/swelling Skin: No rashes, No breakdown Neuro: Normal speech and tone laboratory and microbiology Laboratory Tests 06/17/25 07:08 Test 06/17/25 07:08 Range/Units Serum Glucose 80 74-106 mg/dL Microbiology Date/Time Source Procedure Growth Status 06/12/25 17:14 Nose MRSA Screen - Final Complete Labs and/or images reviewed: Labs reviewed by me, Image(s) reviewed by me Problem List/Assessment/Plan Problem List/Assessment/Plan Assessment/plan #Acute kidney injury possible obstructive etiology status post Daley over ? CKD -Labs 06/17/2025 creatinine 2.70, likely baseline kidney function # hypokalemia # hypomagnesemia # bradycardia status post pacemaker placement # Hypertension # history of stroke # history of atrial fibrillation Plan Renal diet Strict input and output Monitor kidney function and electrolytes including magnesium Status post Daley catheter removal IV fluids were discontinued Renal function stable at around Chronic kidney disease 4 Continue spironolactone 50 mg daily, possible hyperaldosterone state( considering persistent low potassium ) Hypokalemia corrected with oral potassium Hypomagnesemia corrected with oral magnesium tablet Patient is a poor historian, unknown baseline kidney function Patient will need outpatient follow up with Nephrology for workup and management of CKD Case discussion with Dr Doshi. Addendum Patient seen and examined, plan discussed with resident. Agree with above, we will follow closely Plan discussed with: Patient, Other Dietary Evaluation Review Comments: 1) Add renal restriction to cardiac diet 2) Encourage optimal PO intake 3) Follow-up with cardiology and nephrology 4) Continue to monitor I&O, labs, and skin integrity Expected Outcomes/Goals: 1) appetite and labs to improve 2) f/u in 3-5 days BELA CASTILLO Jun 17, 2025 13:40 CARLOTTA DOSHI MD Jun 17, 2025 14:12
[2025-06-17] MEDS ORDERED: MAGNESIUM OXIDE 400 MG TAB PO ONE (13:45)
[2025-06-17] MEDS: MAGNESIUM OXIDE 400 MG TAB PO ONE (14:52)
[2025-06-17] MEDS ORDERED: NALO4SPR2 (16:36)
[2025-06-17] MEDS ORDERED: DOXY100C79 PO (16:36)
[2025-06-17] MEDS ORDERED: HYDR-4902 PO (16:36)
--- NOTE | 2025-06-17 16:40 | DVHDS2 ---
Discharge Summary Date of Admission Jun 11, 2025 at 19:51 Date of Discharge: Jun 17, 2025 Labs/Diagnostic Data: Laboratory Results Test 06/17/25 07:08 06/14/25 02:51 06/13/25 03:12 06/12/25 04:31 White Blood Count 5.9 10^3/uL (4.4-10.8) Red Blood Count 4.25 10^6/uL (4.5-5.90) Hemoglobin 12.7 g/dL (13.5-17.5) Hematocrit 35.8 % (41.0-53.0) Mean Corpuscular Volume 84.2 fL (80.0-100.0) Mean Corpuscular Hemoglobin 29.9 pg (28.0-32.0) Mean Corpuscular Hemoglobin Concent 35.5 g/dL (32.0-36.0) Red Cell Distribution Width 14.5 % (11.8-14.3) Platelet Count 169 10^3/uL (140-450) Mean Platelet Volume 9.4 fL (6.9-10.8) Neutrophils (%) (Auto) 54.3 % (37.0-80.0) Lymphocytes (%) (Auto) 32.3 % (10.0-50.0) Monocytes (%) (Auto) 9.0 % (0.0-12.0) Eosinophils (%) (Auto) 3.6 % (0.0-7.0) Basophils (%) (Auto) 0.8 % (0.0-2.0) Neutrophils # (Auto) 3.2 10 ^3/uL (1.6-8.6) Lymphocytes # (Auto) 1.9 10 ^3/uL (0.4-5.4) Monocytes # (Auto) 0.5 10 ^3/uL (0-1.3) Eosinophils # (Auto) 0.2 10 ^3/uL (0-0.8) Basophils # (Auto) 0 10 ^3/uL (0-0.2) Nucleated Red Blood Cells 0.0 % Sodium Level 142 mmol/L (136-145) Potassium Level 3.2 mmol/L (3.5-5.1) Chloride Level 105 mmol/L (98-107) Carbon Dioxide Level 25 mmol/L (20-31) Anion Gap 12 (5-15) Blood Urea Nitrogen 30 mg/dL (9-23) Creatinine 2.70 mg/dL (0.700-1.30) Glomerular Filtration Rate Calc 25 mL/min (>90) BUN/Creatinine Ratio 11.1 (10.0-20.0) Serum Glucose 80 mg/dL (74-106) Calcium Level 9.2 mg/dL (8.7-10.4) Magnesium Level 1.6 mg/dL (1.6-2.6) Prothrombin Time 10.8 sec (9.3-11.8) Prothrombin Time INR 1.02 (0.9-1.15) Activated Partial Thromboplast Time 27.6 SEC (24.5-34.5) Triglycerides Level 74 mg/dL (< 150) Cholesterol Level 168 mg/dL (< 200) LDL Cholesterol 110 mg/dL (< 100) HDL Cholesterol 50 mg/dL (40-59) Hemoglobin A1c 5.0 % A1C (<5.7) Thyroid Stimulating Hormone (TSH) 0.34 uIU/mL (0.55-4.78) Test 06/11/25 19:58 06/11/25 18:21 Urine Color Light-yellow (Yellow) Urine Clarity Clear (Clear) Urine pH 5.5 (5.0-9.0) Urine Specific [place] 1.009 (1.001-1.035) Urine Protein Trace (Negative) Urine Ketones Negative (Negative) Urine Blood Negative /uL (Negative) Urine Nitrite Negative (Negative) Urine Bilirubin Negative (Negative) Urine Urobilinogen Normal mg/dL (Negative) Urine Leukocyte Esterase Negative /uL (Negative) Urine RBC 1 /hpf (0 - 3) Urine Microscopic WBC 1 /HPF (0-3) Urine Squamous Epithelial Cells None seen /hpf (<5) Urine Bacteria None seen /hpf (None Seen) Urine Sperm Present /hpf (None Seen) Urine Glucose Normal mg/dL (Normal) Troponin I High Sensitivity 41 ng/L (</=54) Other Laboratory Tests 06/17/25 07:08 Brief Hx & Hospital Course: 70-year-old male with a known history of hypertension, dyslipidemia, CKD, history of CVA presented to the hospital with the increasing shortness a breath or chest pain found to have AFib with slow ventricular response. Patient's beta mary was held as well as Eliquis. Patient has had a symptomatic bradycardia status post pacemaker placement. Patient's hospital course was eventful for confusional episodes but today he is fully awake alert oriented. Patient is being discharged under stable condition with a close follow up as an outpatient with the PCP and Cardiology. Condition at Discharge: Stable Final Diagnosis/Problems List 70-year-old male with a known history of hypertension, dyslipidemia, CKD, history of CVA presented to the hospital with the increasing shortness a breath or chest pain found to have 1. AFib with slow ventricular response was on Eliquis and metoprolol which will be on hold 2. Symptomatic bradycardia status post pacemaker placement 3. Hypertensive urgency 4. Acute metabolic encephalopathy, improved 5. CKD 6. History of CVA Discharge Disposition: Home with Health Services SNF Discharge Will this Physician continue t: No Discharge Instruct/Medications Diet: Cardiac 2g Na,low cholest Activity: See Comment Activity comment: No driving, no signing legal documents, no playing on heavy machinery while on narcotics. Follow Up/Referral: Follow up with the PCP in 1-2 weeks Follow up with Dr. 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 Continued Medications: Amlodipine Besylate (Amlodipine Besylate) 5 Mg Tab 10 MG PO DAILY for 30 Days, MG Apixaban Base (Eliquis) 2.5 Mg Tab 2.5 MG PO BID, TAB Clonidine Hydrochloride (Clonidine Hcl) 0.1 Mg Tab 0.1 MG PO BID PRN for SBP>160 or DBP>105 for 30 Days, MG Empagliflozin (Jardiance) 25 Mg Tab 12.5 MG PO, TAB Hydralazine Hcl (Hydralazine Hcl) 25 Mg Tab 25 MG PO QID for 30 Days, MG Isosorbide Dinitrate (Isosorbide Dinitrate) 10 Mg Tab 10 MG PO for 30 Days, MG Metoprolol Succinate (Metoprolol Succinate Er) 50 Mg Tab 50 MG PO DAILY for 30 Days, MG Scheduled Amlodipine Besylate (Amlodipine Besylate), 10 MG PO DAILY, (Reported) Apixaban Base (Eliquis), 2.5 MG PO BID, (Reported) Doxycycline (Monohydrate) (Doxycycline), 100 MG PO BID Hydralazine Hcl (Hydralazine Hcl), 25 MG PO QID, (Reported) Metoprolol Succinate (Metoprolol Succinate Er), 50 MG PO DAILY, (Reported) Naloxone HCl (Narcan), 4 MG NA 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 Patient was counseled about treatment plan, medications, possible side effects, patientverbalized understanding. All questions were answered to the best of my ability. This discharge took greater then 30 minutes in planning, reviewing documentation, counseling the patient, and discussing with other team members." ASSESSMENT ASSESSMENT Assessment 70-year-old male with a known history of hypertension, dyslipidemia, CKD, history of CVA presented to the hospital with the increasing shortness a breath or chest pain found to have 1. AFib with slow ventricular response was on Eliquis and metoprolol which will be on hold 2. Symptomatic bradycardia status post pacemaker placement 3. Hypertensive urgency 4. Acute metabolic encephalopathy, improved 5. CKD 6. History of CVA Date of Service: Jun 17, 2025 Billing Provider: MOR MARADIAGA MD Common Visit Codes: 48102-AAO/OBS DISCH DAY >30min MOR MARADIAGA MD Jun 17, 2025 16:40
[2025-06-17] MEDS: POTASSIUM CHL 20 Meq TABLET PO ONE (18:06)
[2025-06-18] VITALS (8 sets, daily range): BP systolic 133–156; BP diastolic 87–105; PULSE 64–70; RESP 16–18; TEMP 96.7–98.3; O2SAT 97–100
[2025-06-18 06:30] LABS: Chloride 106 mmol/L (98-107); Potassium 4.0 mmol/L (3.5-5.1); Sodium 141 mmol/L (136-145)
[2025-06-18 06:31] LABS: Anion Gap 9 (5-15); Calcium 9.4 mg/dL (8.7-10.4); Carbon Dioxide 26 mmol/L (20-31)
[2025-06-18 06:36] LABS: BUN/Creatinine Ratio 11.0 (10.0-20.0); Glucose 86 mg/dL (74-106); Magnesium 1.7 mg/dL (1.6-2.6)
[2025-06-18 06:38] LABS: Blood Urea Nitrogen 31 mg/dL (9-23)
--- NOTE | 2025-06-18 10:57 | ECG ---
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
--- NOTE | 2025-06-18 17:00 | DVHPN2 ---
Subjective Patient refused to get home Health, requesting to go home. 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 Medications Current Medications Medications Dose Ordered Sig/Phoebe Route Start Time Stop Time Status Last Admin Dose Admin Nitroglycerin 0.4 mg Q5MINP PRN SL 06/11/25 20:00 Morphine Sulfate 2 mg Q30M PRN IV 06/11/25 20:00 Atorvastatin Calcium 10 mg HS PO 06/11/25 22:00 06/17/25 21:14 10 MG Ondansetron HCl 4 mg Q4HP PRN IV 06/11/25 20:15 Hydralazine HCl 10 mg Q6HP PRN IV 06/11/25 23:00 06/16/25 06:20 10 MG Atropine Sulfate 1 mg PRN PRN IV 06/12/25 14:00 06/14/25 01:57 1 MG Metoprolol Succinate 50 mg DAILY PO 06/15/25 10:00 06/18/25 09:17 50 MG Amlodipine Besylate 10 mg DAILY PO 06/15/25 10:00 06/18/25 09:17 10 MG Hydralazine HCl 25 mg Q8HR PO 06/15/25 14:00 06/18/25 13:48 25 MG Apixaban 2.5 mg BID PO 06/15/25 22:00 06/18/25 09:18 2.5 MG Spironolactone 50 mg DAILY PO 06/16/25 10:00 06/18/25 09:18 50 MG Docusate Sodium 100 mg BIDPRN PRN PO 06/16/25 22:30 06/16/25 22:27 100 MG Laboratory Results Laboratory Tests 06/17/25 07:08 06/18/25 05:40 Chemistry Test 06/18/25 05:40 Calcium Level 9.4 mg/dL (8.7-10.4) Magnesium Level 1.7 mg/dL (1.6-2.6) Urinalysis Test 06/11/25 19:58 Urine Color Light-yellow (Yellow) Urine Clarity Clear (Clear) Urine pH 5.5 (5.0-9.0) Urine Specific [place] 1.009 (1.001-1.035) Urine Protein Trace (Negative) H Urine Ketones Negative (Negative) Urine Blood Negative /uL (Negative) Urine Nitrite Negative (Negative) Urine Bilirubin Negative (Negative) Urine Urobilinogen Normal mg/dL (Negative) Urine Leukocyte Esterase Negative /uL (Negative) Urine RBC 1 /hpf (0 - 3) Urine Microscopic WBC 1 /HPF (0-3) Urine Squamous Epithelial Cells None seen /hpf (<5) Urine Bacteria None seen /hpf (None Seen) Urine Sperm Present /hpf (None Seen) Urine Glucose Normal mg/dL (Normal) Microbiology Microbiology Date/Time Source Procedure Growth Status 06/12/25 17:14 Nose MRSA Screen - Final Complete Assessment/Plan Assessment/Plan 70-year-old male with a known history of hypertension, dyslipidemia, CKD, history of CVA presented to the hospital with the increasing shortness a breath or chest pain found to have 1. AFib with slow ventricular response was on Eliquis and metoprolol which will be on hold 2. Symptomatic bradycardia status post pacemaker placement 3. Hypertensive urgency 4. Acute metabolic encephalopathy, improved 5. CKD 6. History of CVA -patient is status post pacemaker placement, discharged home today. Please follow up with the Cardiology in one week. Plan discussed with: Patient My Orders Orders - MOR MARADIAGA MD Procedure Category Date Status Time * Small Business Director CONS 06/17/25 Transmitted Consult Discharge DISCHARGE 06/18/25 Transmitted 16:34 Date of Service: Jun 18, 2025 Billing Provider: MOR MARADIAGA MD Common Visit Codes: [id number] INP/OBS CARE(MOD) MOR MARADIAGA MD Jun 18, 2025 17:00
--- NOTE | 2025-06-18 19:05 | DVHPN2 ---
Progress Note Date Seen: Jun 18, 2025 Resident Creating Document: BELA CASTILLO RESIDENT Medical Necessity Reason Pt with a Central, PICC or Fol: Yes The following are medically ne: Daley Catheter Subjective Review of Systems 70 years old male with past medical history of hypertension, CVA, AFib, ?Chronic kidney disease, presented with chief complaints of chest pain and worsening confusion. patient found to be bradycardic, and was started on isoproterenol by the Cardiology team and transferred to ICU Patient was also found to be in urinary retention, as when daley catheter was placed, patient had 2700 cc uop after that overnight. 06/17/2025 Mentioned no active complaint Objective vital signs Vital Sign Date Time Temp Pulse Resp B/P (MAP) Pulse Ox O2 Delivery O2 Flow Rate FiO2 06/18/25 17:00 97.2 70 18 146/99 (115) 100 97.2 06/18/25 08:05 Room Air* 0 21 Total Intake and Output 06/17/25 06/17/25 06/18/25 15:00 23:00 07:00 Intake Total 510 ml 300 ml Output Total 775 ml Balance 510 ml -475 ml medications Current Medications Medications Dose Ordered Sig/Phoebe Route Start Time Stop Time Status Last Admin Dose Admin Nitroglycerin 0.4 mg Q5MINP PRN SL 06/11/25 20:00 Morphine Sulfate 2 mg Q30M PRN IV 06/11/25 20:00 Atorvastatin Calcium 10 mg HS PO 06/11/25 22:00 06/17/25 21:14 10 MG Ondansetron HCl 4 mg Q4HP PRN IV 06/11/25 20:15 Hydralazine HCl 10 mg Q6HP PRN IV 06/11/25 23:00 06/16/25 06:20 10 MG Atropine Sulfate 1 mg PRN PRN IV 06/12/25 14:00 06/14/25 01:57 1 MG Metoprolol Succinate 50 mg DAILY PO 06/15/25 10:00 06/18/25 09:17 50 MG Amlodipine Besylate 10 mg DAILY PO 06/15/25 10:00 06/18/25 09:17 10 MG Hydralazine HCl 25 mg Q8HR PO 06/15/25 14:00 06/18/25 13:48 25 MG Apixaban 2.5 mg BID PO 06/15/25 22:00 06/18/25 09:18 2.5 MG Spironolactone 50 mg DAILY PO 06/16/25 10:00 06/18/25 09:18 50 MG Docusate Sodium 100 mg BIDPRN PRN PO 06/16/25 22:30 06/16/25 22:27 100 MG Examination Examination General Appearance: Alert, Oriented X3, Cooperative, No acute distress HEENT: EOMI Respiratory: Clear to auscultation, Normal air movement Cardiovascular: Regular rate, Normal S1, Normal S2 Abdominal: Normal bowel sounds Extremities: No cyanosis, No edema, Normal pulses, No tenderness/swelling Skin: No rashes, No breakdown Neuro: Normal speech and tone laboratory and microbiology Laboratory Tests 06/18/25 05:40 06/17/25 07:08 Test 06/18/25 05:40 Range/Units Serum Glucose 86 74-106 mg/dL Microbiology Date/Time Source Procedure Growth Status 06/12/25 17:14 Nose MRSA Screen - Final Complete Problem List/Assessment/Plan Problem List/Assessment/Plan Assessment/plan #Acute kidney injury possible obstructive etiology status post Daley over ? CKD - creatinine increased from 2.70 to 2.83 Input/Output 810ml/750ml with a net + of 35 ml # hypokalemia # hypomagnesemia # bradycardia status post pacemaker placement # Hypertension # history of stroke # history of atrial fibrillation Plan Renal diet Strict input and output Monitor kidney function and electrolytes including magnesium Status post Daley catheter removal IV fluids were discontinued Continue spironolactone 50 mg daily, possible hyperaldosterone state( considering persistent low potassium ) mild increase in creatinine levels after removal of Daley catheter, will order bladder scan to evaluate for bladder outlet obstruction. Consider Flomax if evidence of Bladder outlet Obstruction. Patient is a poor historian, unknown baseline kidney function Patient will need outpatient follow up with Nephrology for workup and management of CKD. Case discussion with Dr Avila. Plan discussed with: Patient, Other My Orders My Orders Orders - BELA CASTILLO RESIDENT Procedure Category Date Status Time Basic Metabolic Panel LAB 06/19/25 Verified 04:00 Magnesium LAB 06/19/25 Verified 04:00 Dietary Evaluation Review Comments: 1) Add renal restriction to cardiac diet 2) Encourage optimal PO intake 3) Follow-up with cardiology and nephrology 4) Continue to monitor I&O, labs, and skin integrity Expected Outcomes/Goals: 1) appetite and labs to improve 2) f/u in 3-5 days BELA CASTILLO RESIDENT Jun 18, 2025 19:05
== END 2025-06-18 19:22 | disposition home health service (06) | DRG 228 ==
LOC: EDBD 16:59 → ER 16:59 → OVERFLOW 19:51 → DOU 06-12 17:05 → ICU WEST 06-12 18:30 → TELE-WESTW 06-15 17:16
PROVIDERS: ADMIT Internal Medicine; ATTEND Internal Medicine
PROC: 02HK3NZ Insertion of Intracardiac Pacemaker into Right Ventricle, Percutaneous Approach (ICD-10-PCS; principal; 2025-06-14)
DX: I49.5 Sick sinus syndrome (principal); Z00.6 Encounter for examination for normal comparison and control in clinical research program; G93.41 Metabolic encephalopathy; N17.9 Acute kidney failure, unspecified; I13.0 Hypertensive heart and chronic kidney disease with heart failure and stage 1 through stage 4 chronic kidney disease, or unspecified chronic kidney disease; I69.354 Hemiplegia and hemiparesis following cerebral infarction affecting left non-dominant side; I45.89 Other specified conduction disorders; I48.91 Unspecified atrial fibrillation; E87.6 Hypokalemia; I16.0 Hypertensive urgency; N18.9 Chronic kidney disease, unspecified; E78.5 Hyperlipidemia, unspecified; E83.42 Hypomagnesemia; I49.3 Ventricular premature depolarization; I50.9 Heart failure, unspecified
CPT/HCPCS: 33274; 36415; 70450; 71045; 76775; 80048; 80061; 81001; 83036; 83735; 84132; 84443; 84484; 85025; 85610; 85730; 87081; 93005; 93306; 96365; 99152; G0378; J2250; J3480; J7060; Q9967